=== PATIENT | male | born 1965 | race Caucasian/White ===

== ENCOUNTER 2016-04-22 12:08 | Inpatient (IN) | payer OTHER ==
[~2016-04-22] VITALS: Ht 172.7 cm; Wt 74.8 kg
--- NOTE | 2016-04-22 12:08 | NUR ---
Patient BIBA and taken to bed 05 via gurney per EMS.
--- NOTE | 2016-04-22 12:12 | NUR ---
50/M BIBA AFTER SEIZURE AT HOME 4-5 MINS TODAY. HX SEIZURE DISORDER, HIV, HEP C, CIRRHOSIS.PATIENT PRESENTS TO ED W/ ALOC, WEAKNESS,NON VERBAL,AT THIS TIME. NO N/V/D NOTED AT THIS TIME; ASCITES NOTED TO ABDOMEN; HYPOACTIVE BOWEL SOUNDS X4 QUADRANTS; SKIN IS PINK/WARM/DRY ; SWELLING NOTED TO SCROTUM AT THIS TIME;+2 PITTING EDEMA NOTED TO BL LOWER EXTREMITIES AT THIS TIME; LUNGS CLEAR BL; HR EVEN AND REGULAR; VSS; PATIENT POSITIONED FOR COMFORT; HOB ELEVATED; BEDRAILS UP X2; BED DOWN. ER MADE AWARE OF PT STATUS. Addendum: 04/22/16 at 1501 by [facility] SMALL DRY OPEN WOUND TO RIGHT FOOT.
[2016-04-22 12:14] VITALS: BP 111/83
[2016-04-22] MEDS ORDERED: NACL 0.9% 1,000 ML IV ONE (12:20)
--- NOTE | 2016-04-22 12:20 | NUR ---
RECTAL TEMPERATURE 98.6. M.D. NOTIFIED.
[2016-04-22] MEDS ORDERED: LASIX40 MG (12:30)
[2016-04-22] MEDS ORDERED: PROPRANOLOL HCL10 MG (12:30)
[2016-04-22] MEDS ORDERED: OMEPRAZOLE DR20 MG (12:30)
--- NOTE | 2016-04-22 12:30 | NUR ---
PT STILL UNRESPONSIVE TO VERBAL COMMANDS; VSS AT THIS TIME; FAMILY AT BEDSIDE; WILL CONTINUE TO MONITOR.
--- NOTE | 2016-04-22 12:38 | NUR ---
PT TAKEN TO CT VIA SAJAN ACCOMPANIED BY LACE SEWER
--- NOTE | 2016-04-22 13:07 | NUR ---
Dr. Saez evaluating patient at bedside.
[2016-04-22] MEDS ORDERED: METOCLOPRAMIDE 10 MG/2 ML INJ VIAL IVP ONE (13:30)
--- NOTE | 2016-04-22 13:30 | NUR ---
REGLAN GIVEN IVP PER ER MD DR DUVAL ORDER; MEDICATION WAS D/C BY ER MD DR. DUVAL AFTER MEDICATION GIVEN; ER MD DR. DUVAL NOTIFIED; VSS AT THIS TIME; NO S/S OF DISTRESS NOTED AT THIS TIME; WILL CONTINUE TO MONITOR.
--- NOTE | 2016-04-22 13:45 | NUR ---
NADR AT THIS TIME FROM REGLAN ADMINISTERED; VSS AT THIS TIME; PT APPEARS TO BE RESTING COMFORTABLY; NO S/S OF DISTRESS NOTED AT THIS TIME; WILL CONTINUE TO MONITOR.
[2016-04-22] MEDS ORDERED: ALBUTEROL SULFATE/IPRATROPIU 3 ML SOL IH PRN (13:50)
[2016-04-22] MEDS: NACL 0.9% 1,000 ML IV SCH (13:51)
--- NOTE | 2016-04-22 13:53 | NUR ---
CALLED PHARMACY FOR KEPPRA MEDICATION; PHARMACY TO BRING MEDICATION FOR PT IN ER; WILL CONTINUE TO MONITOR.
[2016-04-22] MEDS ORDERED: HYDROcodone/APAP 7.5/325 MG 1 TAB PO PRN (13:55)
[2016-04-22] MEDS ORDERED: ONDANSETRON 4 MG/2 ML VIAL IVP PRN (13:55)
[2016-04-22] MEDS ORDERED: levETIRAcetam 1,000 MG in NACL 0.9% 100 ML IV ONE (14:05)
--- NOTE | 2016-04-22 14:21 | NUR ---
CALLED TELEMETRY TO GIVE REPORT; RN STATED WILL CALL BACK.
[2016-04-22] MEDS ORDERED: DEXTROSE 50% 50 ML SYR IVP PRN (14:35)
--- NOTE | 2016-04-22 14:35 | NUR ---
PT TAKEN TO CT VIA GURVERNA ACCOMPANIED BY PUBLIC TRANSPORTATION INSPECTOR.
--- NOTE | 2016-04-22 14:36 | NUR ---
GAVE REPORT TO MATTY SIMON Addendum: 04/22/16 at 1529 by MED1 GAVE REPORT TO MATTY ENRIQUEZ
[2016-04-22] MEDS: ALBUTEROL SULFATE/IPRATROPIU 3 ML SOL IH SCH ×3 (15:00→23:18)
[2016-04-22] MEDS ORDERED: PIPERACILLIN/TAZOBACTAM 3.375 GM in DEXTROSE 5% 50 ML IV SCH (15:00)
[2016-04-22] MEDS ORDERED: NADOLOL 20 MG TAB PO SCH (15:00)
[2016-04-22] MEDS ORDERED: PANTOPRAZOLE 40 MG INJ VIAL IVP SCH (15:00)
[2016-04-22] MEDS ORDERED: FUROSEMIDE 40 MG TAB PO SCH (15:00)
[2016-04-22] MEDS ORDERED: PIPER/TAZO 3.375GM/D5W PREMIX 50 ML IV SCH ×2 (15:00→16:00)
--- NOTE | 2016-04-22 15:05 | NUR ---
Patient will be admitted to care of DR. HARVEY. Admited to TELEMETRY. Will go to room 112B. Belongings list completed. Report to MATTY ENRIQUEZ.
[2016-04-22 15:15] VITALS: BP 118/89
--- NOTE | 2016-04-22 15:15 | NUR ---
RECEIVED PATIENT FROM ER WITH CHIEF COMPLAINING OF SEIZURE, PATIENT APPEARED TO BE LETHARGIC AND DROWSY. AAOX2 PATIENT ABLE TO OPEN EYES AND ABLE TO VERBALIZE "IM IN HOSPITAL" AND WENT BACK TO SLEEP RIGHT AWAY. NO SIGN OF RESPIRATORY DISTRESS NOTED AT THIS TIME. INITIAL ASSESSMENT DONE. ABD DISTENDED AND FIRM. HYPOACTIVE BOWEL SOUND NOTED. LUNG SOUNDED DIMINISHED BILATERAL. PATIENT HAS 16G IV TO LEFT AC INTACT AND FLUSHED WELL. PATIENT HAS SCAB TO RIGHT HEEL LEFT CHERISE, WILL PUT DRESSING ON. MRSA SWAB DONE. HEAD OF BED ELEVATED. SEIZURE PRECAUTION INITIATED. PLAN OF CARE DISCUSSED WITH PATIENT AND FAMILY MEMBERS, THEY VERBALIZED UNDERSTANDING. SAFETY MEASURES GIVEN. CALL LIGHT WITHIN REACH. WILL CONTINUE TO MONITOR.
--- NOTE | 2016-04-22 16:42 | NUR ---
ARMBAND CHECKED AND CONFIRMED RIGHT PATIENT AND . DUE IVP AND IVPB MEDICATIONS GIVEN WITH TEACHING TO FAMILY MEMBERS, THEY VERBALIZED UNDERSTANDING. NO SIGN OF DISTRESS NOTED AT THIS TIME. PATIENT REMAINED DROWSY AND ASLEEP. SAFETY MEASURE REENFORCED. CALL LIGHT WITHIN REACH. WILL CONTINUE TO MONITOR.
[2016-04-22] MEDS: BLOOD GLUCOSE MONITORING 1 DEV DEV FS SCH ×2 (17:06→21:57)
--- NOTE | 2016-04-22 17:50 | NUR ---
WOUND TO RIGHT HEEL CLEANED, PADDED DRY AND REENFORCED WITH GAUZE AND WRAPPED WITH KERLIX, PATIENT TOLERATED WELL. NO SIGN OF DISTRESS NOTED.
--- NOTE | 2016-04-22 17:54 | NUR ---
ENDORSED PATIENT CURRENT PLAN OF CARE TO NURSE POOL STARR, PATIENT STILL REMAINED LETHARGIC AND DROWSY. NO SIGN OF DISTRESS NOTED.
--- NOTE | 2016-04-22 17:55 | NUR ---
RECEIVED PT FROM MATTY LAI. U/S TECH IS AT BEDSIDE AT THIS TIME WORKING ON THE PT. FAMILY MEMBERS AT BEDSIDE. WILL CONTINUE TO MONITOR.
--- NOTE | 2016-04-22 19:23 | NUR ---
MD BROOKE TO SEE PT. ORDERED XR LT SHOULDER DUE TO PTS C/O LT SHOULDER PAIN.
--- NOTE | 2016-04-22 19:28 | NUR ---
RECEIVED PT IN STABLE CONDITION FROM MATTY ESPARZA. NO SOB, NO SIGNS OF DISTRESS. PT IS AOX1, LETHARGIC, BUT ABLE TO FOLLOW COMMANDS AND ANSWER BY NODDING HEAD YES OR NO. VS STABLE. PT ON 2L O2 NC. FAMILY AT BEDSIDE. IV TO LT FA 16G PATENT, ASYMPTOMATIC, INTACT, IVF RUNNING. PT C/O 10/10 PAIN IN LT SHOULDER, WILL MEDICATE PER MD ORDER. PT WITH ROUND ASCITIC ABDOMEN. BLE PITTING EDEMA 3+ WORSE ON LT LEG. PT C/O LT ARM WEAKNESS AND RIGIDITY. PLACED PT ON SEIZURE AND FALL PRECAUTIONS. SCROTUM EDEMATOUS. PT WITH SCAB TO RT HEEL. PLAN OF CARE DISCUSSED WITH PT AND FAMILY. SAFETY MEASURES IN PLACE. CALL LIGHT WITHIN REACH. WILL CONTINUE TO MONITOR.
--- NOTE | 2016-04-22 19:28 | NUR ---
PT WAS ENDORSED TO RN. LUIZ FOR CONTINUITY OF CARE IN STABLE CONDITION. Addendum: 04/22/16 at 1933 by Candy Monaco RN PT WAS ENDORSED TO RN. PIOTR FOR CONTINUITY OF CARE IN STABLE CONDITION.
[2016-04-22 20:00] VITALS: BP 126/85
--- NOTE | 2016-04-22 20:47 | NUR ---
XR TECH AT BEDSIDE DOING XR RT SHOULDER, POSSIBLE DISLOCATION, TOLD CNAS AND FAMILY TO BE CAUTIOUS WITH PTS LT SHOULDER, FAMILY AND CNAS VERBALIZED UNDERSTANDING.
[2016-04-22] MEDS: MORPHINE SULFATE 2 MG/ML SYR IVP PRN (20:54)
[2016-04-22] MEDS ORDERED: levETIRAcetam 1,000 MG in NACL 0.9% 100 ML IV SCH (21:00)
[2016-04-22] MEDS ORDERED: levETIRAcetam 500 MG in NACL 0.9% 100 ML IV SCH (21:00)
[2016-04-22] MEDS ORDERED: levETIRAcetam 500 MG TAB ONE (21:07)
[2016-04-22] MEDS ORDERED: levETIRAcetam 100 MG/ML VIAL IV ONE (21:17)
[2016-04-22] MEDS: levETIRAcetam 1,000 MG in NACL 0.9% 100 ML IV SCH (21:54)
--- NOTE | 2016-04-22 21:57 | NUR ---
VS STABLE. PT TOLERATED DUE MEDS WELL. NO SOB, NO SIGNS OF DISTRESS. IV SITE ASYMPTOMATIC, INTACT, IVPB RUNNING. MEDICATED PT FOR PAIN PER MD ORDER. BLOOD SUGAR 116, NO COVERAGE NEEDED. PT ON 2L O2 NC. FAMILY AT BEDSIDE. PLAN OF CARE DISCUSSED WITH PT AND FAMILY. SAFETY MEASURES IN PLACE. CALL LIGHT WITHIN REACH. WILL CONTINUE TO MONITOR.
[2016-04-22] MEDS: PIPER/TAZO 3.375GM/D5W PREMIX 50 ML IV SCH (23:58)
--- NOTE | 2016-04-22 23:58 | NUR ---
PT TOLERATED DUE MED WELL. VS STABLE. PT ON 2L O2 NC. PT DENIES PAIN AT THIS TIME. IV SITE ASYMPTOMATIC, INTACT, PATENT, IVPB RUNNING. FAMILY AT BEDSIDE. PLAN OF CARE DISCUSSED WITH PT. SAFETY MEASURES IN PLACE. CALL LIGHT WITHIN REACH. WILL CONTINUE TO MONITOR.
[2016-04-23] VITALS: BP 100/74
--- NOTE | 2016-04-23 02:05 | NUR ---
PT ASLEEP IN BED. FLACC 0. PT ON 2L O2 NC. IV SITE ASYMPTOMATIC, INTACT, PATENT, IVF RUNNING. FAMILY AT BEDSIDE. SAFETY MEASURES IN PLACE. CALL LIGHT WITHIN REACH. WILL CONTINUE TO MONITOR.
[2016-04-23] MEDS: ALBUTEROL SULFATE/IPRATROPIU 3 ML SOL IH SCH ×6 (03:07→23:08)
--- NOTE | 2016-04-23 03:34 | NUR ---
PT REQUESTED FOOD, PROVIDED PT WITH SOFT FOODS. FAMILY MEMBER AT BEDSIDE FEEDING PATIENT, PT TOLERATING WELL.
[2016-04-23 04:00] VITALS: BP 121/74
--- NOTE | 2016-04-23 04:00 | NUR ---
VS STABLE. PT ON 2L O2 NC. NO SOB, NO SIGNS OF DISTRESS. IV SITE ASYMPTOMATIC, INTACT, PATENT, IVF RUNNING. PT C/O LT SHOULDER PAIN. WILL MEDICATE PER MD ORDER. PLAN OF CARE DISCUSSED WITH PT. SAFETY MEASURES IN PLACE. CALL LIGHT WITHIN REACH. WILL CONTINUE TO MONITOR.
[2016-04-23] MEDS: MORPHINE SULFATE 2 MG/ML SYR IVP PRN ×3 (04:16→13:53)
--- NOTE | 2016-04-23 04:35 | NUR ---
PT STATED RELIEF OF PAIN, HOWEVER PT STILL TWITCHING AND WITH MUSCLE SPASM IN LEG. SISTER STATED THAT MUSCLE SPASM WAS FELT BEFORE PT HAS A SEIZURE YESTERDAY. PAGED MD GREGORY TO MAKE AWARE.
--- NOTE | 2016-04-23 04:38 | NUR ---
SPOKE WITH MD GREGORY, ORDER FOR ATIVAN RECEIVED. WILL ADMINISTER.
[2016-04-23] MEDS ORDERED: LORazepam 2 MG/ML VIAL IVP PRN (04:40)
[2016-04-23] MEDS ORDERED: LORazepam 2 MG/ML VIAL ONE (04:46)
--- NOTE | 2016-04-23 04:46 | NUR ---
GAVE ATIVAN IVP PER MD ORDER. VS STABLE. NO SOB, NO SIGNS OF DISTRESS PT ON 2L O2 NC. IV SITE ASYMPTOMATIC, INTACT, PATENT, IVF RUNNING. SISTER AT BEDSIDE. WILL CONTINUE TO MONITOR.
[2016-04-23] MEDS: NACL 0.9% 1,000 ML IV SCH ×3 (05:04→15:30)
--- NOTE | 2016-04-23 05:16 | NUR ---
PT ASLEEP IN BED, SISTER SAID TWITCHING AND MUSCLE SPASMS STOPPED. PT ON 2L O2 NC. NO SOB, NO SIGNS OF DISTRESS. IV SITE ASYMPTOMATIC, INTACT, PATENT, IVF RUNNING. PLAN OF CARE DISCUSSED WITH PTS SISTER. SAFETY MEASURES IN PLACE. CALL LIGHT WITHIN REACH. WILL CONTINUE TO MONITOR.
[2016-04-23] MEDS: PIPER/TAZO 3.375GM/D5W PREMIX 50 ML IV SCH ×3 (05:22→17:07)
[2016-04-23] MEDS: PANTOPRAZOLE 40 MG TABEC PO SCH (06:05)
[2016-04-23] MEDS: BLOOD GLUCOSE MONITORING 1 DEV DEV FS SCH ×4 (06:05→21:51)
--- NOTE | 2016-04-23 07:43 | NUR ---
ENDORSED PT IN STABLE CONDITION TO TENA Thorpe RN. ALL NEEDS HAVE BEEN MET AT THIS TIME.
--- NOTE | 2016-04-23 07:44 | NUR ---
RECEIVED REPORT FROM MATTY SALDAÑA. PT IS AAOX1, LETHARGIC. PT ON 2L NC, O2 SAT AT 95%. IV TO LEFT FA #16, PATENT AND INTACT. NO N/V OR PAIN INDICATED. RIGHT HEEL SCAB, AND BILATERAL LOWER EXTREMITY EDEMA NOTED. ALL SAFETY PRECAUTIONS IN PLACE, SIDE RAILSX2, BED IN LOW POSITION, AND WILL PERFORM FREQUENT ROUNDS. SEIZURE PRECAUTIONS IN PLACE.
[2016-04-23 08:00] VITALS: BP 121/84
[2016-04-23] MEDS: levETIRAcetam 1,000 MG in NACL 0.9% 100 ML IV SCH ×3 (08:41→21:50)
[2016-04-23] MEDS: FUROSEMIDE 40 MG TAB PO SCH (08:47)
[2016-04-23] MEDS: NADOLOL 20 MG TAB PO SCH (08:47)
[2016-04-23] MEDS: ASPIRIN 325 MG TABEC PO SCH (08:47)
--- NOTE | 2016-04-23 08:50 | NUR ---
DR WILL IN TO SEE PT. WILL FOLLOW UP ON ORDERS.
--- NOTE | 2016-04-23 08:55 | NUR ---
PT TOLERATED MEDS WELL. 117/81, HR 78. PT C/O PAIN ADMINISTERED MORPHINE ORDERED. WILL CONTINUE TO MONITOR.
--- NOTE | 2016-04-23 09:22 | NUR ---
PATIENT HAS BEEN SCREENED AND CATEGORIZED HIGH NUTRITION RISK. PATIENT WILL BE SEEN WITHIN 1-2 DAYS OF ADMISSION. 04/23/16-04/24/[address]
[2016-04-23] MEDS: ATORVASTATIN 20 MG TAB PO SCH (09:29)
--- NOTE | 2016-04-23 10:12 | NUR ---
DR PEREA IN TO SEE PT. WILL FOLLOW UP ON ORDERS.
[2016-04-23] MEDS ORDERED: TOPIRAMATE 100 MG TAB PO SCH (10:19)
--- NOTE | 2016-04-23 11:05 | NUR ---
PT TOLERATED MEDS WELL. FAMILY PRESENT AT BEDSIDE. WILL CONTINUE TO MONITOR.
--- NOTE | 2016-04-23 11:30 | NUR ---
BLOOD GLUCOSE 140, NO COVERAGE INDICATED.
[2016-04-23 12:00] VITALS: BP 124/78
--- NOTE | 2016-04-23 12:00 | NUR ---
TALKED TO DR ADEN MD MADE AWARE OF PT HAS NOT URINATED SINCE LAST NIGHT. MD TO FOLLOW UP, NO ORDERS RECEIVED. MD AWARE UNABLE TO COLLECT URINE SAMPLE FOR UA TEST. MD TO PLACE ORDER FOR STRAIGHT CATH.
--- NOTE | 2016-04-23 13:03 | NUR ---
PT TOLERATED MEDS WELL. WILL CONTINUE TO MONITOR.
--- NOTE | 2016-04-23 13:50 | NUR ---
DR KERR IN TO SEE PT. WILL FOLLOW UP ON ORDERS.
--- NOTE | 2016-04-23 15:05 | NUR ---
DR BROOKE IN TO SEE PT. WILL FOLLOW UP ON ORDERS. Addendum: 04/23/16 at 1828 by Radha Tejada RN DR ADEN EPSTEIN MD TO PLACE ORDER FOR HANDY CATHETER.
[2016-04-23 16:00] VITALS: BP 107/83
[2016-04-23] MEDS ORDERED: LORazepam 1 MG TAB PO SCH (16:00)
--- NOTE | 2016-04-23 16:15 | NUR ---
PT TOLERATED MEDS WELL. BLOOD GLUCOSE 117, NO COVERAGE INDICATED. FAMILY PRESENT AT BEDSIDE. WILL CONTINUE TO MONITOR.
--- NOTE | 2016-04-23 16:50 | NUR ---
PT FEELING COLD, PROVIDED PT WITH WARM BLANKET. WILL CONTINUE TO MONITOR.
--- NOTE | 2016-04-23 17:09 | NUR ---
PT TOLERATED MEDS WELL. WILL CONTINUE TO MONITOR.
--- NOTE | 2016-04-23 18:40 | NUR ---
PT RESTING WITH NO DISTRESS NOTED, FAMILY PRESENT AT BEDSIDE.
--- NOTE | 2016-04-23 19:01 | NUR ---
UA DRUG SCREEN REMAINS UNCOLLECTED, TO PLACE STRAIGHT CATH ORDER. WILL FOLLOW UP.
--- NOTE | 2016-04-23 19:21 | NUR ---
ENDORSED CARE TO MATTY KO. PT IN STABLE CONDITION.
--- NOTE | 2016-04-23 19:30 | NUR ---
RECEIVED REPORT FROM TENA STARR, AT BEDSIDE, PATIENT IS A/O X2, PATIENT ANSWERS HIS NAME AND KNOWS DATE, PATIENT HAS DELAYED RESPONSE BUT CAN COMMUNICATE. PATIENT APPEARS VERY LETHARGIC. ON O2 2L NC, BED REST, SEIZURE PRECAUTIONS IN PLACE. PATIENT'S ABDOMEN IS DISTENDED AND HARD, PATIENT HAS BLE EDEMA PITTING 3+ TO LEFT LEG, 2+ TO THE RIGHT LEG. SCAB NOTED TO RIGHT HEEL, COVERED WITH DRESSING DRY AND INTACT. IV TO LEFT FOREARM 16G PATENT WITH IVF INFUSING WELL. DISCUSSED PLAN OF CARE WITH PATIENT, REINFORCEMENT NEEDED, SAFETY MEASURES CHECKED, CALL LIGHT WITHIN REACH. WILL CONTINUE TO MONITOR. FAMILY AT BEDSIDE.
[2016-04-23] MEDS ORDERED: KETOROLAC 15 MG/ML VIAL IVP PRN (19:45)
[2016-04-23 20:00] VITALS: BP 106/73
[2016-04-23] MEDS: LACTULOSE 20 GM/30 ML UDC PO SCH ×2 (21:00→21:50)
[2016-04-23] MEDS: metroNIDAZOLE 500 MG/NS PREMIX 100 ML IV SCH (21:50)
[2016-04-23] MEDS: TOPIRAMATE 100 MG TAB PO SCH (21:50)
--- NOTE | 2016-04-23 22:00 | NUR ---
PM MEDS ADMINISTERED, CRUSHED AND GIVEN WITH APPLESAUCE. PATIENT REFUSED LACTULOSE. CALL LIGHT WITHIN REACH. WILL CONTINUE TO MONITOR. WILL INSERT HANDY CATH.
--- NOTE | 2016-04-23 22:30 | NUR ---
INSERTED HANDY CATH 16 TELUGU. PATIENT TOLERATED WELL. NO HEMATURIA NOTED, DARK BEHZAD URINE PRESENT. URINE SPECIMEN COLLECTED
[2016-04-24] VITALS: BP 112/70
--- NOTE | 2016-04-24 00:15 | NUR ---
VITAL SIGNS STABLE, NO DISTRESS NOTED, ADMINISTERED ABX ZOSYN PER MD ORDER, PTS SISTER AT BEDSIDE, CALL LIGHT WITHIN REACH, WILL CONTINUE TO MONITOR.
[2016-04-24] MEDS: PIPER/TAZO 3.375GM/D5W PREMIX 50 ML IV SCH ×4 (00:30→17:49)
--- NOTE | 2016-04-24 01:58 | NUR ---
ALERTED THAT PATIENT WAS OFF TELE, CHANGED STICKER LEADS, NO SIGN OF DISTRESS, CALL LIGHT WITHIN REACH. PTS SISTER AT BEDSIDE, WILL CONTINUE TO MONITOR.
--- NOTE | 2016-04-24 03:30 | NUR ---
PATIENT SLEEPING, NO SOB OR SIGN OF DISTRESS, CALL LIGHT WITHIN REACH, WILL CONTINUE TO MONITOR.
[2016-04-24] MEDS: ALBUTEROL SULFATE/IPRATROPIU 3 ML SOL IH SCH ×6 (03:38→22:49)
[2016-04-24 04:00] VITALS: BP 134/76
--- NOTE | 2016-04-24 04:20 | NUR ---
VITAL SIGNS STABLE, NO SIGN OF DISTRESS, PATIENT STATED HE HAS NO PAIN, PATIENT ATE SOME JELLO, TOLERATED WELL, WILL CONTINUE TO MONITOR.
[2016-04-24] MEDS: levETIRAcetam 1,000 MG in NACL 0.9% 100 ML IV SCH ×3 (04:41→21:32)
--- NOTE | 2016-04-24 05:30 | NUR ---
BLOOD SUGAR CHECK 127, NO COVERAGE NEEDED
[2016-04-24] MEDS: metroNIDAZOLE 500 MG/NS PREMIX 100 ML IV SCH ×3 (05:35→21:00)
[2016-04-24] MEDS: PANTOPRAZOLE 40 MG TABEC PO SCH (06:30)
--- NOTE | 2016-04-24 06:35 | NUR ---
PATIENT SLEEPING, NO SOB OR SIGN OF DISTRESS, PATIENT DENIES ANY PAIN AT THIS TIME, WILL CONTINUE TO MONITOR.
[2016-04-24] MEDS: BLOOD GLUCOSE MONITORING 1 DEV DEV FS SCH ×4 (06:36→21:40)
--- NOTE | 2016-04-24 07:15 | NUR ---
RECEIVED PATIENT REPORT. PATIENT IS LETHARGIC BUT AROUSABLE. NO S/S OF DISTRESS NOTED. NO SOB. PATIENT ON 3L O2. DISTENDED AND ASCITIC ABD NOTED. HANDY CATHETER IN PLACE DRAINING DARK BEHZAD URINE. TESTICULAR SWELLING NOTED. BLE 2+ PITTING EDEMA NOTED. SCD IN PLACE. PATIENT ON TELE MONITORING. BED LOWERED WITH CALL LIGHT WITHIN REACH. WILL CONTINUE TO MONITOR
--- NOTE | 2016-04-24 07:15 | NUR ---
ENDORSED PATIENT TO DAY SHIFT RN AT BEDSIDE, PATIENT IN STABLE CONDITION
[2016-04-24 08:00] VITALS: BP 111/74
[2016-04-24] MEDS ORDERED: SPIRONOLACTONE 50 MG TAB PO SCH (09:00)
[2016-04-24] MEDS: FUROSEMIDE 40 MG TAB PO SCH (09:05)
[2016-04-24] MEDS: ATORVASTATIN 20 MG TAB PO SCH (09:05)
[2016-04-24] MEDS: NADOLOL 20 MG TAB PO SCH (09:05)
[2016-04-24] MEDS: TOPIRAMATE 100 MG TAB PO SCH ×2 (09:05→21:31)
[2016-04-24] MEDS: ASPIRIN 325 MG TABEC PO SCH (09:05)
[2016-04-24] MEDS: LACTULOSE 20 GM/30 ML UDC PO SCH ×2 (09:06→21:31)
[2016-04-24] MEDS ORDERED: SACCHAROMYCES 250 MG CAP PO SCH (09:23)
--- NOTE | 2016-04-24 10:20 | NUR ---
PATIENT SEEN BY DR BROOKE. PATIENT'S MOM SPOKE WITH THE DR AND WAS GIVEN AN UPDATE ON THE PATIENT'S CONDITION
[2016-04-24] MEDS ORDERED: FUROSEMIDE 100 MG/10 ML VIAL IV SCH (11:16)
--- NOTE | 2016-04-24 11:30 | NUR ---
PATIENT HAD BM. STOOL MODERATE IN A AMOUNT, BROWN IN COLOR AND PASTY LIQUID IN CONSISTENCY. STOOL DOES NOT MEET C.DIF CRITERIA. PATIENT CLEANED AND REPOSITIONED.
[2016-04-24 12:00] VITALS: BP 102/75
[2016-04-24] MEDS: NACL 0.9% 1,000 ML IV SCH ×2 (12:20→15:30)
--- NOTE | 2016-04-24 12:20 | NUR ---
04/24/16 RD INITIAL ASSESSMENT COMPLETED PLEASE REFER TO NUTRITION ASSESSMENT UNDER CARE ACTIVITY FOR ESTIMATED NUTRITIONAL NEEDS. RD RECOMMENDATIONS: 1. CONTINUE CCHO 45 GM, SOFT DIET TOLERATED PER MD 2. ENCOURAGE INCREASED PO INTAKES 3. RD TO ADD DIET HEALTH SHAKES TID TO HELP INCREASE KCAL AND PROTEIN INTAKE 4. SHOULD PT CONTINUE TO BE LETHARGIC AND HAVE POOR PO INTAKES <25% CONSIDER NUTRITION SUPPORT 5. RD WILL F/U 2-3 DAYS; HIGH RISK. RENAE BOYD RD
[2016-04-24] MEDS ORDERED: MAG SULF 2000 MG/WATER PREMIX 50 ML IV ONE (12:30)
[2016-04-24] MEDS ORDERED: POTASSIUM CHLORIDE 20% 40 MEQ/15 ML UDC GT SCH (13:08)
--- NOTE | 2016-04-24 13:10 | NUR ---
PATIENT SEEN BY DR KERR. EXPLAINED TO THE SISTER WHY PATIENT IS ON LACTULOSE
[2016-04-24 16:00] VITALS: BP 118/75
--- NOTE | 2016-04-24 16:30 | NUR ---
PATIENT ASLEEP IN BED. NO S/S OF DISTRESS NOTED. PATIENT'S DAUGHTER PRESENT IN THE ROOM.
--- NOTE | 2016-04-24 17:30 | NUR ---
PATIENT'S DAUGHTER HELPING THE PATIENT TO EAT DINNER. PATIENT HAS POOR APPETITE.
[2016-04-24] MEDS: INSULIN ASPART SLIDING SCALE 100 UNITS/ML VIAL SUBQ PRN (18:07)
--- NOTE | 2016-04-24 19:30 | NUR ---
RECEIVED REPORT FROM DAY SHIFT RN AT BEDSIDE, PATIENT IS AAO X2 APPEARS LETHARGIC. PATIENT OPENS EYES TO NAME. RESPONSIVE. SKIN CHECK, PATIENT HAS SCAB TO RIGHT HEEL WITH DRESSING DRY AND INTACT, BILATERAL LOWER EXTREMITY EDEMA NOTED WITH 3+ PITTING. ABDOMEN IS DISTENDED ROUND AND HARD, TESTES ARE SWOLLEN. PATIENT DENIES PAIN AT THIS TIME. PATIENT IS ON O2 @ 2L VIA NASAL CANNULA. SCDS ARE ON, PATIENT IS ON SEIZURE PRECAUTIONS WITH PADDING ON BED SIDE RAILS. IV TO LEFT FOREARM 16G WITH IVF INFUSING WELL. SAFETY MEASURES CHECKED, DISCUSSED PLAN OF CARE WITH PATIENT, PATIENT VERBALIZED UNDERSTANDING. REINFORCEMENT NEEDED. CALL LIGHT WITHIN REACH WILL CONTINUE TO MONITOR. Addendum: 04/24/16 at 2156 by Jessica Dvual RN PATIENT HAS HANDY WITH DARK BEHZAD URINE.
--- NOTE | 2016-04-24 19:30 | NUR ---
ENDORSED CONTINUITY OF CARE TO THE NIGHT NURSE
[2016-04-24 20:00] VITALS: BP 99/67
[2016-04-24] MEDS: SACCHAROMYCES 250 MG CAP PO SCH (21:31)
--- NOTE | 2016-04-24 21:41 | NUR ---
PM MEDS ADMINISTERED, CRUSHED PO MEDS AND MIXED WITH APPLESAUCE, WILL ADMINISTER FLAGYL WHEN KEPPRA IS FINISHED INFUSING. FAMILY AT BEDSIDE, PATIENT FELT WARM TO PTS SISTER, CHECKED TEMPERATURE, 98.6. PATIENTS SISTER ALEX, PTS POWER OF PSYCHIATRIC ARNP STATED SHE HAS BEEN SLEEPING AT THE HOSPITAL WITH THE PATIENT FOR MULTIPLE NIGHTS AND WANTS TO GO HOME TONIGHT TO SLEEP. SHE WAS WORRIED PATIENT WILL GET AGITATED PATIENT "GETS AN ATTITUDE WITH PEOPLE". SHE ASKED IF HE DOES IS THERE ANYTHING WE CAN GIVE HIM TO HELP SLEEP. I LET PTS SISTER KNOW HE HAS MEDICATION FOR ANXIETY IF NEEDED BUT WILL TRY TO CALM PATIENT BEFORE IF NEEDED. PTS SISTER AGREED AND IS AWARE AND SAID TO CALL HER IF WE NEED HER. PATIENT RESTING IN BED WITH TELEVISION ON PER REQUEST OF FAMILY, WILL CONTINUE TO MONITOR PATIENT.
--- NOTE | 2016-04-24 22:05 | NUR ---
PATIENT HAD A CONTINUOUS PULSE OX MONITOR ON, PATIENT WAS ASKING IF IT COULD BE TAKEN OFF, RT EVALUATED AND TURNED OXYGEN DOWN FROM 3L TO 2L VIA NASAL CANNULA AND PATIENT SATS AT 98%. MONITOR REMOVED. WILL CONTINUE TO MONITOR PATIENT. PATIENT TO HAVE BREATHING TX AT 2300.
--- NOTE | 2016-04-24 22:05 | NUR ---
PT ASKED IF HE CAN REMOVE CONTINUOS O2 MONITOR. ACCESSED PT AND TURNED OXYGEN FROM 3L TO 2L NC. PT SAT IS 98% HR 71. NO DISTRESS./SOB NOTED AT THIS TIME. WILL CONTINUE TO MONITOR. MATTY MAXWELL AT BEDSIDE. SISTER AT BEDSIDE.
--- NOTE | 2016-04-24 23:28 | NUR ---
PATIENT RESTING IN BED, NO SIGN OF DISTRESS, PATIENT DENIES PAIN AT THIS TIME. PATIENT IS IN GOOD MOOD AND COOPERATIVE, CALL LIGHT WITHIN REACH. WILL CONTINUE TO MONITOR
[2016-04-25] VITALS (7 sets, daily range): BP systolic 99–124; BP diastolic 61–79
[2016-04-25] MEDS: PIPER/TAZO 3.375GM/D5W PREMIX 50 ML IV SCH ×5 (00:30→23:51)
--- NOTE | 2016-04-25 01:59 | NUR ---
PATIENT WAS SLEEPING, NASAL CANNULA WAS OFF PATIENT, NO SOB NOTED, REAPPLIED CANNULA. PATIENT STATED HE WAS OKAY AND COMFORTABLE AND DID NOT NEED ANYTHING AT THIS TIME. CALL LIGHT WITHIN REACH. WILL CONTINUE TO MONITOR.
[2016-04-25] MEDS: ALBUTEROL SULFATE/IPRATROPIU 3 ML SOL IH SCH ×6 (02:50→22:34)
--- NOTE | 2016-04-25 03:00 | NUR ---
PATIENT RECEIVED BREATHING TX, PER RT PATIENT KEPT REMOVING MASK. PATIENT DID NOT FINISH ALL OF TREATMENT. CALL LIGHT WITHIN REACH. WILL CONTINUE TO MONITOR.
[2016-04-25] MEDS: levETIRAcetam 1,000 MG in NACL 0.9% 100 ML IV SCH ×3 (04:01→21:01)
--- NOTE | 2016-04-25 04:40 | NUR ---
VITAL SIGNS STABLE, PATIENT HAD A BM, CHANGED AND CLEANED PATIENT, REPOSITIONED, PATIENT TOLERATED WELL. CALL LIGHT WITHIN REACH. WILL CONTINUE TO MONITOR.
--- NOTE | 2016-04-25 05:30 | NUR ---
PATIENT STATED HE WAS HUNGRY, PATIENT ATE CHEERIOS WITH MILK, ABLE TO FEED SELF WITH RIGHT ARM. PATIENT TOLERATED WELL. PATIENT DENIES PAIN, CALL LIGHT WITHIN REACH. WILL CONTINUE TO MONITOR.
--- NOTE | 2016-04-25 05:40 | NUR ---
BS SUGAR CHECK 129, NO COVERAGE NEEDED
[2016-04-25] MEDS: metroNIDAZOLE 500 MG/NS PREMIX 100 ML IV SCH ×3 (05:44→21:00)
[2016-04-25] MEDS: PANTOPRAZOLE 40 MG TABEC PO SCH (05:48)
[2016-04-25] MEDS: BLOOD GLUCOSE MONITORING 1 DEV DEV FS SCH ×4 (06:38→21:11)
--- NOTE | 2016-04-25 06:50 | NUR ---
PATIENT SITTING UP IN BED, NO SIGN OF DISTRESS, CALL LIGHT WITHIN REACH. WILL CONTINUE TO MONITOR.
--- NOTE | 2016-04-25 07:25 | NUR ---
ENDORSED PATIENT TO DAY SHIFT RN AT BEDSIDE, PATIENT IN STABLE CONDITION
--- NOTE | 2016-04-25 07:26 | NUR ---
PT ASLEEP BUT RESPONSIVE TO VERBAL AND TACTILE STIMULI. NO SIGNS OF ACUTE DISTRESS. FAMILY AT BEDSIDE. SKIN IS WARM AND DRY, OFFLOAD TO PRESSURE AREAS. NO EPISODE OF ANY NAUSEA OR VOMITING. NOTED ABDOMINAL DISTENTION AND SCROTAL SWELLING. KEPT ELEVATED, NOTED HANDY CATHETER INTACT AND DRAINING 50CC OF BEHZAD COLORED URINE. NO C/O ANT PAIN AT THIS TIME. ALL NEEDS ATTENDED, SAFETY PRECAUTIONS MAINTAINED. CALL LIGHT WITHIN REACH.
--- NOTE | 2016-04-25 08:15 | NUR ---
NEW ORDERS RECEIVED FROM DR. HUNTER. NOTED AND CARRIED OUT.
[2016-04-25] MEDS: ATORVASTATIN 20 MG TAB PO SCH (08:56)
[2016-04-25] MEDS: LACTULOSE 20 GM/30 ML UDC PO SCH ×2 (08:56→21:00)
[2016-04-25] MEDS: SACCHAROMYCES 250 MG CAP PO SCH ×2 (08:56→21:00)
[2016-04-25] MEDS: SPIRONOLACTONE 50 MG TAB PO SCH (08:56)
[2016-04-25] MEDS: NADOLOL 20 MG TAB PO SCH (08:57)
[2016-04-25] MEDS: FUROSEMIDE 40 MG TAB PO SCH (08:57)
[2016-04-25] MEDS: TOPIRAMATE 100 MG TAB PO SCH ×2 (08:57→21:00)
[2016-04-25] MEDS: INSULIN ASPART SLIDING SCALE 100 UNITS/ML VIAL SUBQ PRN (10:48)
--- NOTE | 2016-04-25 12:11 | NUR ---
WAS SEEN BY Kunal MOLINA. VERBALIZED NO NEED TO ADMINISTER PLATELETS AND DO PARACENTESIS. NOTED DR. HUNTER MADE AWARE.
--- NOTE | 2016-04-25 13:46 | NUR ---
CLARIFIED ORDERS WITH DR. HUNTER AND Kunal KERR. MAY STILL DO PARACENTESIS AND NO NEED TO GIVE PLATELETS. NOTED AND CARRIED OUT. CONSENT OBTAINED FROM DPOA. CONTINUE TO MONITOR.
[2016-04-25] MEDS ORDERED: FUROSEMIDE 40 MG/4 ML VIAL IVP SCH (13:57)
[2016-04-25] MEDS: NACL 0.9% 1,000 ML IV SCH (15:30)
--- NOTE | 2016-04-25 16:30 | NUR ---
PT STARTED ON US GUIDED PARACENTESIS WITH ASSIGNED RESIDENTS AND DR. HUNTER. PT TOLERATING WELL. ALERT AND ORIENTED, NO SIGNS OF ACUTE DISTRESS. V/S STABLE. CONTINUE TO MONITOR.
--- NOTE | 2016-04-25 17:10 | NUR ---
PT FINISHED PARACENTESIS AND WAS ABLE TO OBTAIN 3L OF GASTRIC FLUID. SPECIMEN OBTAINED AND SENT TO LAB. PT IS AWAKE ALERT AND RESPONSIVE, NO SIGNS O ACUTE DISTRESS. CONTINUE TO MONITOR. Addendum: 04/25/16 at 1749 by Guevara Donato RN PT FINISHED PARACENTESIS AND WAS ABLE TO OBTAIN 4L OF GASTRIC FLUID. SPECIMEN OBTAINED AND SENT TO LAB. PT IS AWAKE ALERT AND RESPONSIVE, NO SIGNS O ACUTE DISTRESS. CONTINUE TO MONITOR.
[2016-04-25] MEDS ORDERED: ALBUMIN HUMAN 25% 50 ML IV SCH (17:25)
--- NOTE | 2016-04-25 18:53 | NUR ---
PT ASLEEP BUT RESPONSIVE TO VERBAL AND TACTILE STIMULI, NO SIGNS OF ACUTE DISTRESS. ENDORSED TO ONCOMING NEWS AGENT NURSE FOR CONTINUITY OF CARE.
--- NOTE | 2016-04-25 19:40 | NUR ---
RECEIVED PT IN STABLE CONDITION FROM AM NURSE. AWAKE,ALERT ,ORIENTED X2. DROWSY BUT OPEN EYES WHEN NAME CALLED. NO ACUTE DISTRESS NOTED. WITH FAMILY AT BEDSIDE. BEDREST DUE TO GEN WEAKNESS. HAS IVF INFUSING WELL ON THE LT FA#16. CLEAR AND PATENT. HANDY CATH TO GRAVITY. PLAN OF CARE DISCUSSED AND FAMILY VERBALIZED UNDERSTANDING. CALL LIGHT PLACED WITHIN EASY REACH. WILL CONTINUE TO MONITOR.
--- NOTE | 2016-04-25 21:00 | NUR ---
PT REFUSED TO TAKE ALL NIGHT MEDS. REQUESTED FOR SOME PEANUT BUTTER AND JELLY SANDWICH. PROVIDED.
--- NOTE | 2016-04-25 21:10 | NUR ---
BLOOD SUGAR WAS CHECKED RESULT 130. ENCOURAGED TO EAT. FAMILY PRESENT AND HELPED IN ENCOURAGED PT TO EAT.
--- NOTE | 2016-04-25 23:25 | NUR ---
CONTINUATION OF ABOVE NOTES. INSTRUCTED THE DAUGHTER TO CALL IF PT IS HAVING ANY PAIN OR BECOME ANXIOUS . VERBALIZED UNDERSTANDING.
--- NOTE | 2016-04-25 23:25 | NUR ---
FAMILY MEMBER CALLED AND SAID PT MIGHT NEED SOMETHING FOR PAIN. SO WENT TO ROOM. PT IS SLEEPING. ASKED THE DAUGHTER WHO IS AT BEDSIDE IF THE PT C/O PAIN EARLIER . SHE SAID ABDOMINAL PAIN . BUT PT REFUSED TO HAVE ANYTHING FOR THAT. NOW PT IS ASLEEP. NO S/S OF ANY DISCOMFORT NOR PAIN NOTED. INSTRUCTED THE [facility]
--- NOTE | 2016-04-26 02:00 | NUR ---
SLEEPING WELL AT THIS TIME. NO S/S OF ANY DISCOMFORT NOR PAIN NOTED. FAMILY AT BEDSIDE.
--- NOTE | 2016-04-26 02:01 | NUR ---
BLOOD SUGAR WAS CHECKED RESULT 130. ENCOURAGED TO EAT. FAMILY AT BEDSIDE AND ENCOURAGED PT TO EAT. Addendum: 04/26/16 at 0203 by Gail Velazquez RN CANCEL ABOVE NOTES. CAREGIVER MISTAKE
[2016-04-26] MEDS: ALBUTEROL SULFATE/IPRATROPIU 3 ML SOL IH SCH ×4 (03:03→14:42)
[2016-04-26] MEDS: levETIRAcetam 1,000 MG in NACL 0.9% 100 ML IV SCH ×2 (04:41→13:30)
[2016-04-26] MEDS: metroNIDAZOLE 500 MG/NS PREMIX 100 ML IV SCH ×2 (04:41→12:44)
--- NOTE | 2016-04-26 05:30 | NUR ---
BLOOD WAS DRAWN . WILL FOLLOW UP RESULTS.
[2016-04-26] MEDS: PIPER/TAZO 3.375GM/D5W PREMIX 50 ML IV SCH ×2 (05:47→11:27)
[2016-04-26] MEDS: PANTOPRAZOLE 40 MG TABEC PO SCH (06:30)
--- NOTE | 2016-04-26 06:30 | NUR ---
HAD SOME LEMON SANTO DOMINGO SODA . FINISHED @250 ML.
[2016-04-26] MEDS: BLOOD GLUCOSE MONITORING 1 DEV DEV FS SCH ×2 (06:43→12:04)
[2016-04-26] MEDS: INSULIN ASPART SLIDING SCALE 100 UNITS/ML VIAL SUBQ PRN ×2 (06:44→12:40)
--- NOTE | 2016-04-26 07:30 | NUR ---
ENDORSED PT IN STABLE CONDITION TO AM NURSE.
--- NOTE | 2016-04-26 07:31 | NUR ---
RECEIVED PT FROM [facility]ATTY NIELSEN ASLEEP BUT EASILY AWAKEN, LYING ON BED WITH SISTER AT BEDSIDE. AAOX2, AROUSABLE TO NAME. WITH IV ON LEFT FOREARM 16G INFUSING FLUIDS WELL, WITH RIGHT HEEL SCAB CLEAN AND DRY, WITH SCD IN PLACE. SEIZURE/FALL/ASPIRATION PRECAUTIONS ENFORCED. DISCUSSED PLAN OF CARE, PT VERBALIZED UNDERSTANDING. CALL LIGHT WITHIN REACH, WILL CONTINUE TO MONITOR.
--- NOTE | 2016-04-26 07:50 | NUR ---
ASSISTED PT TO RESTROOM WITH ORTHOPEDIC PODIATRIST, PT HAD LOOSE STOOL. PT TOLERATED AMBULATING WELL WITH O2SAT AT 99%
[2016-04-26 08:00] VITALS: BP 106/77
[2016-04-26] MEDS: NADOLOL 20 MG TAB PO SCH (08:17)
--- NOTE | 2016-04-26 08:50 | NUR ---
PT ASSISTED TO RESTROOM, HAD LOOSE BOWEL MOVEMENT. SAMPLE SENT TO LAB FOR CDIFF TOXIN.
[2016-04-26] MEDS: SPIRONOLACTONE 50 MG TAB PO SCH (09:00)
[2016-04-26] MEDS ORDERED: FUROSEMIDE 40 MG/4 ML VIAL IVP SCH (09:00)
[2016-04-26] MEDS: LACTULOSE 20 GM/30 ML UDC PO SCH (09:08)
[2016-04-26] MEDS: TOPIRAMATE 100 MG TAB PO SCH (09:08)
[2016-04-26] MEDS: ATORVASTATIN 20 MG TAB PO SCH (09:08)
[2016-04-26] MEDS: SACCHAROMYCES 250 MG CAP PO SCH (09:08)
--- NOTE | 2016-04-26 09:10 | NUR ---
DUE MEDS GIVEN, PT TOLERATED WELL. HELD BP MED AND ALDACTONE D/T LOW BLOOD PRESSURE. ALL NEEDS MET AT THIS TIME. CALL LIGHT WITHIN REACH, WILL CONTINUE TO MONITOR.
--- NOTE | 2016-04-26 09:21 | NUR ---
SPOKE TO DR HUNTER IF PT WILL STILL HAVE PLATELET TRANSFUSION, PLATELET LEVEL IS AT 47, INFORMED DR. HUNTER BUT HE STATED NO NEED FOR THE PLATELET PT DOES NOT HAVE ACTIVE BLEEDING.
[2016-04-26] MEDS ORDERED: ALDACTONE50 M1 PO (10:45)
[2016-04-26] MEDS ORDERED: CEPHULAC10 GM/152 PO (10:45)
[2016-04-26] MEDS ORDERED: TOPAMAX100 MG PO (10:45)
[2016-04-26] MEDS ORDERED: KEPPRA XR750 MG PO (10:45)
[2016-04-26] MEDS ORDERED: POTASSIUM CHLORIDE 10 MEQ TABER PO SCH (11:00)
--- NOTE | 2016-04-26 11:29 | NUR ---
6024 MET WITH PT, PT'S MOTHER ABELINO AND SISTER SAMEERA ADKINS. DISCUSSED PT'S DISCHARGE PLAN AND PER SAMEERA PT WANTS TO GO HOME. PT HAS LIMITED MOBILITY AT THE MOMENT AND WILL REQUIRE [facility] FOR HOME USE. SAMEERA HAS MEDICAL POA FOR PT AND DID PROVIDE A COPY OF THE [employer] DIRECT[employer] WHICH WAS PLACED ON PT CHART. SAMEERA IS IN AGREEMENT TO PT HAVING HOME HEALTH SERVICES FOR NURSING AND PHYSICAL THERAPY. STATES SHE HAS NO PREFERENCE. DID AGREE TO [facility].
--- NOTE | 2016-04-26 12:09 | NUR ---
SS NOTE: PER DOTTY FROM [facility] ([phone]), THEY WILL SEND A NURSE TOMORROW TO SEE PT AT HOME. DELIVERED PT'S FWW BEDSIDE, PT WAS SLEEPING BUT PT'S MOTHER, STEPHANIE WAS PRESENT. I ALSO MADE HER AWARE OF THE ABOVE INFORMATION.
--- NOTE | 2016-04-26 13:35 | NUR ---
PT ASLEEP LYING ON BED BUT EASILY AWAKEN. WITH RELATIVE ON BEDSIDE. CALL LIGHT WITHIN REACH, WILL CONTINUE TO MONITOR.
--- NOTE | 2016-04-26 15:20 | NUR ---
DISCHARGE INSTRUCTIONS AND PRESCRIPTIONS GIVEN, ID WRISTBAND AND IV ACCESS REMOVED, CATHETER TIP INTACT. DISCHARGE WOUND PHOTOS TAKEN. PT GIVEN WHEEL WALKER BY CM. PHONE NUMBER TO [employer] GIVEN. PT LEFT IN STABLE CONDITION IN A WHEELCHAIR ACCOMPANIED BY FAMILY AND WHEELED OUT BY LEAK DETECTOR IN STABLE CONDITION
== END 2016-04-26 15:20 | disposition home health service (06) | DRG 871 ==
LOC: MED 12:08 → MTU 14:21
PROVIDERS: ADMIT Student in an Organized Health Care Education/Training Program; ATTEND Student in an Organized Health Care Education/Training Program
PROC: 0W9G3ZZ Drainage of Peritoneal Cavity, Percutaneous Approach (ICD-10-PCS; principal; 2016-04-25)
PROC: 0W9G3ZX Drainage of Peritoneal Cavity, Percutaneous Approach, Diagnostic (ICD-10-PCS; 2016-04-25)
DX: A41.9 Sepsis, unspecified organism (principal); J69.0 Pneumonitis due to inhalation of food and vomit; E43 Unspecified severe protein-calorie malnutrition; J96.01 Acute respiratory failure with hypoxia; N17.0 Acute kidney failure with tubular necrosis; K76.6 Portal hypertension; D68.9 Coagulation defect, unspecified; D61.818 Other pancytopenia; K70.31 Alcoholic cirrhosis of liver with ascites; G40.409 Other generalized epilepsy and epileptic syndromes, not intractable, without status epilepticus; E11.65 Type 2 diabetes mellitus with hyperglycemia; K21.9 Gastro-esophageal reflux disease without esophagitis; B19.20 Unspecified viral hepatitis C without hepatic coma; K72.90 Hepatic failure, unspecified without coma; E87.6 Hypokalemia; E87.8 Other disorders of electrolyte and fluid balance, not elsewhere classified; E83.51 Hypocalcemia; E03.9 Hypothyroidism, unspecified; D53.9 Nutritional anemia, unspecified; G90.9 Disorder of the autonomic nervous system, unspecified; K70.11 Alcoholic hepatitis with ascites; K80.20 Calculus of gallbladder without cholecystitis without obstruction; N43.3 Hydrocele, unspecified; N18.9 Chronic kidney disease, unspecified; I12.9 Hypertensive chronic kidney disease with stage 1 through stage 4 chronic kidney disease, or unspecified chronic kidney disease; Z68.25 Body mass index [BMI] 25.0-25.9, adult; Z79.899 Other long term (current) drug therapy; Z87.820 Personal history of traumatic brain injury

== ENCOUNTER 2016-06-13 15:45 | Inpatient (IN) | payer MEDICAID, OTHER ==
[~2016-06-13] VITALS: Ht 170.2 cm; Wt 49.9 kg
[~2016-06-13 15:45] MED LIST: ALDACTONE50 M1 PO; CEPHULAC10 GM/152 PO; KEPPRA XR750 MG PO; LASIX40 MG; OMEPRAZOLE DR20 MG; PROPRANOLOL HCL10 MG; TOPAMAX100 MG PO
[2016-06-13 16:12] VITALS: BP 101/79
--- NOTE | 2016-06-13 16:18 | NUR ---
PATIENT AMBULATED TO ER BED 3.
--- NOTE | 2016-06-13 16:40 | NUR ---
51/M TO ED WITH SISTER BEDSIDE. SENT FROM PCP WITH C/O GEN WEAKNESS, DEHYDRATION, AND ABD PAIN X5 DAYS. PT IS LETHARGIC AND HAS NOT BEEN EATING OR DRINKING. PAIN 8/10. LUNGS CLEAR BILAT. HR EVEN AND REGULAR. PT IS ALERT AND ORIENTED BUT HAS DIFFICULTY SPEAKING. VSS. NO SIGNS OF DISTRESS.
--- NOTE | 2016-06-13 17:27 | NUR ---
PT TAKEN TO CT VIA SAJAN
--- NOTE | 2016-06-13 18:25 | NUR ---
Patient appears to be resting comfortably in bed. Vital Signs within normal limits. Respirations even and unlabored.
--- NOTE | 2016-06-13 19:19 | NUR ---
Pt report given to MATTY GIRON. Transfer of care at this time.
--- NOTE | 2016-06-13 19:25 | NUR ---
RECEIVED LETHARGIC,CONFUSE. NOT IN ACUTE DISTRESS. PT.ADMITTED TO TELEMETRY FOR HEPATO-BRANDON; SYNDROME UNDER THE SERVICE OF . VS STABLE,WILL CONTINUE TO MONITOR. Addendum: 06/13/16 at 2014 by [id number] CORRECTION: UNDER THE SERVICE OF DR.GEISE REED LUIS
[2016-06-13] MEDS ORDERED: HYDROcodone/APAP 5/325 MG 1 TAB TAB PO PRN (19:45)
[2016-06-13] MEDS ORDERED: ONDANSETRON 4 MG/2 ML VIAL IVP PRN (19:45)
[2016-06-13] MEDS ORDERED: MORPHINE SULFATE 2 MG/ML SYR IVP PRN (19:45)
[2016-06-13] MEDS ORDERED: ACETAMINOPHEN 325 MG TAB PO PRN (19:45)
--- NOTE | 2016-06-13 20:00 | NUR ---
REPORT GIVEN TO MANAN STARR. PT.GOING TO ROOM 106-A.
--- NOTE | 2016-06-13 20:26 | NUR ---
TRANSFERRED TO [facility] ACLS PROTOCOL STABLE. TRANSFER UNEVENTFUL.
[2016-06-13 20:40] VITALS: BP 116/80
[2016-06-13] MEDS: TOPIRAMATE 100 MG TAB PO SCH (21:00)
[2016-06-13] MEDS: LACTULOSE 20 GM/30 ML UDC PO SCH (21:00)
--- NOTE | 2016-06-13 21:00 | NUR ---
Admitted from ED, with chief complaint of SENT BY PMD FOR EVAL DUE TO WEAKNESS, CONFUSION, NOT EATING, 51 y/o ,Male, Uncooperative, IRRITABLE. Family at bedside. Initial assessment done. Vital signs checked. Pt denies any discomfort or shortness of breath. Oriented to call light, bed, phone,television, bathroom, smoking policy, visiting hours, procedures, ID bracelet on. Belongings list checked. MRSA swab collected and sent to Lab.
--- NOTE | 2016-06-13 21:15 | NUR ---
TRIED GIVING CRUSHED MEDICINE W/ APPLE SAUCE BUT PT KEEPS SPITTING IT W/ FAMILY AT BEDSIDE TO ENCOURAGE.
[2016-06-13] MEDS: NACL 0.9% 1,000 ML IV SCH (21:39)
--- NOTE | 2016-06-13 21:51 | NUR ---
PAGED DR IVY. WILL AWAIT FOR CALL BACK.
--- NOTE | 2016-06-13 21:53 | NUR ---
SPOKE TO DR IVY REGARDING PT SPITTING MEDICINE WHEN GIVEN, HAS PROBLEM SWALLOWING, AND ACCDG TO SISTER PT HASN'T BEEN EATING REGULAR FOOD FOR WEEKS, ONLY ENSURE WHENEVER HE FEELS LIKE IT. INFORMED HER ALSO THAT PER SISTER, PT HASN'T SLEPT FOR DAYS AND NEEDS SOMETHING FOR SLEEP LIKE ATIVAN. SAID SHE'LL PUT THE ORDER IN.
--- NOTE | 2016-06-13 21:53 | NUR ---
PER DR IVY, KEEP THE PATIENT NPO FOR NOW UNTIL THE MD IN THE MORNING EVALUATES THE PATIENT.
--- NOTE | 2016-06-13 23:10 | NUR ---
PT IRRITABLE AND DOESN'T WANT TO BE BOTHERED. EXPLAINED THAT HIS VS NEEDS TO BE CHECKED AND AFTERWARDS, WILL BE LEFT ALONE. PT SAID "OK". PT REPOSITIONED FOR COMFORT.
[2016-06-14] VITALS (7 sets, daily range): BP systolic 98–128; BP diastolic 61–94
--- NOTE | 2016-06-14 02:00 | NUR ---
SEEN PT STILL AWAKE. PT SAID "I'M NOT HUNGRY." ASKED PT IF HE CAN'T SLEEP. PT SAID "I'M OK, I JUST WANT TO REST." WILL MEDICATE FOR SLEEP.
[2016-06-14] MEDS: LORazepam 2 MG/ML VIAL IVP PRN (02:02)
--- NOTE | 2016-06-14 04:30 | NUR ---
AWAKEN PT. VITAL SIGNS CHECKED. PT DENIES ANY DISCOMFORT BUT DOES OCCASIONAL HICCUPS. PT REPOSITIONED FOR COMFORT. WILL APPLY SEQUENTIAL BUT PT REFUSED AT THIS TIME. SAFETY REINFORCED.
[2016-06-14] MEDS ORDERED: DEXTROSE 50% 50 ML SYR IVP PRN (07:00)
[2016-06-14] MEDS ORDERED: FLUCONAZOLE 100 MG TAB PO SCH (07:00)
[2016-06-14] MEDS ORDERED: PROPRANOLOL 20 MG TAB PO SCH (07:06)
--- NOTE | 2016-06-14 07:45 | NUR ---
RECEIVED PT SLEEPING BUT OPEN HIS EYES WHEN TOUCHED. PT VOICED NO C/O PAIN AT THIS TIME. PT NPO EXCEPT MEDS. SHIFT ASSESSMENT DONE AND CHARTED. PLAN OF CARE, MEDS, TREATMENTS AND SAFETY DISCUSSED WITH PT WITH QUESTIONABLE UNDERSTANDING. PT LOOKED MALNOURISHED AND DEHYDRATED. WILL CONTINUE TO CHECK ON PT.
--- NOTE | 2016-06-14 07:58 | NUR ---
PATIENT HAS BEEN SCREENED AND CATEGORIZED HIGH NUTRITION RISK. PATIENT WILL BE SEEN WITHIN 1-2 DAYS OF ADMISSION. 06/14/16-06/15/[address]
--- NOTE | 2016-06-14 08:00 | NUR ---
PT WAS SEEN BY MAURICIO MARQUEZ AND DR RUFF. MD LEFT NEW ORDERS.
--- NOTE | 2016-06-14 08:40 | NUR ---
PT'S FAMILY WERE IN TO VISIT PT. PT TOOK PO MEDS CRUSHED WITH APPLE SAUCE. REQUIRED A LOT OF COAXING FOR PT TO SWALLO MED. PT TOLERATED IT WELL. NO COUGHING NOTED. WILL CONTINUE TO MONITOR PT.
[2016-06-14] MEDS: NACL 0.9% 1,000 ML IV SCH ×3 (08:46→22:36)
[2016-06-14] MEDS ORDERED: SPIRONOLACTONE 50 MG TAB PO SCH ×2 (09:00→17:00)
[2016-06-14] MEDS ORDERED: FUROSEMIDE 40 MG TAB PO SCH (09:00)
[2016-06-14] MEDS: TOPIRAMATE 100 MG TAB PO SCH ×2 (09:22→21:00)
[2016-06-14] MEDS: PANTOPRAZOLE 40 MG TABEC PO SCH (09:22)
[2016-06-14] MEDS: LACTULOSE 20 GM/30 ML UDC PO SCH ×2 (09:23→21:00)
[2016-06-14] MEDS: BLOOD GLUCOSE MONITORING 1 DEV DEV FS SCH ×2 (09:24→11:30)
--- NOTE | 2016-06-14 09:30 | NUR ---
BLOOD SUGAR [address] RUFF NOTIFIED OF RESULT AND MD STATED TO D COVERAGE AT THIS TIME PT IS NPO.
--- NOTE | 2016-06-14 10:00 | NUR ---
PT'S MOTHER BROUGHT IN PT'S OWN MEDS. DR. RUFF PUT ORDER FOR SAME.
[2016-06-14] MEDS ORDERED: HARVONI1 TAB PO (10:15)
[2016-06-14] MEDS ORDERED: PATIENTS OWN TABLET PO SCH (10:35)
[2016-06-14] MEDS ORDERED: RIFAXIMIN 550 MG TAB PO SCH ×2 (10:54→21:00)
--- NOTE | 2016-06-14 11:00 | NUR ---
PT'S IV SITE NOTED TO BE SWOLLEN SAME DISCONTINUED WITH OLD CATH TIP INTACT. PRESSURE DRESSINGS APPLIED TO SITE. DR. DAVID WAS IN TO SEE PT WITH DR. MARTÍNEZ AND ELZBIETA.
[2016-06-14] MEDS: MORPHINE SULFATE 2 MG/ML SYR IVP PRN ×2 (11:18→22:08)
--- NOTE | 2016-06-14 12:00 | NUR ---
DR. ANAYA NOTIFIED RE ACCUCHECK RESULT OF 240. STATED NOT TO GIVE COVERAGE AT THIS TIME.
[2016-06-14] MEDS ORDERED: TPN PER PHARMACY MC PRN (12:25)
--- NOTE | 2016-06-14 12:30 | NUR ---
NEW G 22 IV INSERTED TO PT'S RT FOREARM. PT TOLERATED IT WELL.
[2016-06-14] MEDS ORDERED: LEVETIRACETAM 1000 MG PO SCH (13:00)
[2016-06-14] MEDS: PROPRANOLOL 20 MG TAB PO SCH ×2 (13:36→21:00)
[2016-06-14] MEDS: LEVOFLOXACIN 250 MG/D5 PREMIX 50 ML IV SCH (13:41)
--- NOTE | 2016-06-14 14:30 | NUR ---
PARACENTESIS DONE AT PT'S BED SIDE BY DR. MARTÍNEZ WITH DR. RUFF. NOTED DARK ORANGE OUTPUT 4L TOTAL. PT TOLERATED THE PROCEDURE WELL.
--- NOTE | 2016-06-14 16:30 | NUR ---
PT TURNED AND REPOSITIONED Q2H AND PRN. PT WEAK AND NEEDED 2 ASSISTS FOR TURNING AND REPOSITIONING.
[2016-06-14] MEDS: FUROSEMIDE 20 MG/2 ML VIAL IVP SCH (17:28)
[2016-06-14] MEDS: BLOOD GLUCOSE MONITORING 1 DEV DEV MC SCH (17:30)
--- NOTE | 2016-06-14 17:30 | NUR ---
ACCTK DONE 283. DR. RUFF NOTIFIED OF SAME AND STATED TO GIVE ONLY 1/2 OF THE SLIDING SCALE DOSE. PT GIVEN HUMALOG 3 UNITS ASPER MD'S INSTRUCTION. PT SLEEPING AT THIS TIME.
[2016-06-14] MEDS: INSULIN LISPRO SLIDING SCALE 100 UNITS/ML VIAL SUBQ PRN (17:32)
--- NOTE | 2016-06-14 19:10 | NUR ---
REPORT GIVEN TO BIRD STARR. PT CONTINUE TO HAVE HIS EYES CLOSED BUT WAS RESPONDING TO FAMILY VERBALLY. NO CHANGES NOTED IN PT'S CONDITION.
--- NOTE | 2016-06-14 19:30 | NUR ---
RECEIVED FROM AM RN IN BED SLEEPING. OPENS EYES WHEN TOUCHED. FAMILY MEMBERS IN HERE VISITING. CARE PLANS FOR THE NIGHT DISCUSSED WITH FAMILY MEMBERS. FOR PICC LINE PLACEMENT TONIGHT. PT. LETHARGIC AND PER AM RN MD AWARE OF SITUATION. CALL LIGHT WITH IN REACH. NEEDS WILL BE ANTICIPATED AND WILL BE MET. TOTAL CARE. WILL BE TURNED Q 2H.
[2016-06-14] MEDS ORDERED: FAT EMULSION 20% IV SCH (20:00)
[2016-06-14] MEDS ORDERED: DEXTROSE 50% IV SCH (20:00)
[2016-06-14] MEDS ORDERED: AMINO ACIDS 8.5% IV SCH (20:00)
--- NOTE | 2016-06-14 20:49 | NUR ---
DAUGHTER ASKING FOR PAIN RELIEVER FOR PT. RT SHE KNOWS S/S OF PAIN OF FATHER. WILL MEDICATE REQUESTED. PT. AT PRESENT ON PICC LINE PLACEMENT.
[2016-06-14] MEDS: RIFAXIMIN 550 MG TAB PO SCH (21:00)
--- NOTE | 2016-06-14 21:30 | NUR ---
PICC LINE INSERTED AND DONE BY PICC LINE RN. DAUGHTER AT BEDSIDE AFTER. TPN STARTED AT 40 ML PER HOUR. PICC LINE SITE DRESSING INTACT AND NO BLEEDING NOTED. PT. WILL BE TURNED Q2H.
--- NOTE | 2016-06-14 21:40 | NUR ---
MORPHINE REQUESTED BY DAUGHTER EARLIER NOT GIVEN RT PER DAUGHTER " AFTER PICC LINE PLACEMENT HE IS SLEEPING AND RELAXED NOW." PICC LINE PLACEMENT DONE. WILL DISCARD MORPHINE TAKEN OUT .
--- NOTE | 2016-06-14 22:10 | NUR ---
DAUGHTER OF PT. REQUESTED FOR MORPHINE IVP RT " HE IS NOT RELAXED NOW, HE IS PULLING HIS KNEE UP AND GRINDING HIS TEETH." MEDICATED REQUESTED. PT. NEEDS WILL BE ANTICIPATED AND WILL BE MET. TOTAL CARE. DAUGHTER REFUSED TO HAVE HIS FATHER/ PT. BE GIVEN P.O. MEDICATIONS. "ONLY IV"
[2016-06-15] MEDS: INSULIN LISPRO SLIDING SCALE 100 UNITS/ML VIAL SUBQ PRN ×4 (00:42→18:03)
[2016-06-15] MEDS: BLOOD GLUCOSE MONITORING 1 DEV DEV MC SCH ×4 (00:42→18:02)
[2016-06-15 00:47] VITALS: BP 95/70
--- NOTE | 2016-06-15 00:56 | NUR ---
PT. TURNED Q 2H. TOTAL CARE. OPENS EYES WHEN VITAL SIGN TAKEN FOR MIDNIGHT. NO COMPLAINTS DONE. CALL LIGHT WITH IN REACH. HANDY CATHETER DRAINING WELL WITH YELLOW URINE TO URINAL BAG. TELEMETRY MONITORING. FLACC 0-
--- NOTE | 2016-06-15 00:58 | NUR ---
PICC LINE DRESSING INTACT AND NO BLEEDING NOTED.
--- NOTE | 2016-06-15 03:11 | NUR ---
PT. AWAKE AT THIS TIME. ABLE TO VERBALIZE SIMPLE NEEDS. DENIES PAIN AT THIS TIME. PICC LINE SITE INTACT AND NO BLEEDING NOTED. NO SOB. ENCOURAGED TO TELL ME IF IN PAIN. "OK"
[2016-06-15 03:25] VITALS: BP 104/67
--- NOTE | 2016-06-15 04:49 | NUR ---
PT. SLEPT BACK. TELEMETRY MONITORING. CALL LIGHT WITH IN REACH. TURNED Q 2H. TOTAL CARE. FLACC 0-
[2016-06-15] MEDS: PROPRANOLOL 20 MG TAB PO SCH ×4 (05:00→20:48)
--- NOTE | 2016-06-15 05:53 | NUR ---
PT. REFUSED TO TAKE INDERAL P.O. MEDICATION. "NO" EXPLAINED PROS AND CONS. STILL REFUSED TO OPEN MOUTH. PT. BLOOD SUGAR CHECKED 198 MG/DL. RISS COVERAGE GIVEN. PT. WITH TPN ONGOING.
--- NOTE | 2016-06-15 07:31 | NUR ---
ENDORSED TO THE NEXT RN FOR CONTINUITY OF CARE AWAKE AND VERBALIZES SIMPLE NEEDS IN YORUBA.
--- NOTE | 2016-06-15 07:42 | NUR ---
RECEIVED REPORT FROM MATTY PANG. PT RESTING IN BED, LETHARGIC, A/OX3, PICC LINE DOUBLE LUMEN RIGHT UPPER ARM, PATENT, INTACT, INFUSING WELL, IV ON THE LEFT WRIST, PATENT, INTACT, INFUSING WELL, PT HAS REDNESS ON SACRAL WOUND, HANDY CATHETER IN PLACE, NO S/S OF RESPIRATORY DISTRESS OR DISCOMFORT NOTED, DISCUSSED PLAN OF CARE WITH PT, PT VERBALIZED UNDERSTANDING, DAUGHTER IS AT PT BEDSIDE, SAFETY/FALL PRECAUTIONS IN PLACE, CALL LIGHT IS WITHIN REACH, WILL CONTINUE TO MONITOR.
[2016-06-15] MEDS ORDERED: ALBUTEROL SULFATE/IPRATROPIU 3 ML SOL IH PRN (07:50)
[2016-06-15 08:00] VITALS: BP 99/61
[2016-06-15] MEDS ORDERED: LEDIPASVIR PO SCH (09:00)
[2016-06-15] MEDS ORDERED: SOFOSBUVIR PO SCH (09:00)
[2016-06-15] MEDS: FUROSEMIDE 20 MG/2 ML VIAL IVP SCH ×2 (09:00→17:00)
[2016-06-15] MEDS: RIFAXIMIN 550 MG TAB PO SCH ×2 (09:21→20:48)
[2016-06-15] MEDS: PATIENTS OWN TABLET PO SCH (09:21)
[2016-06-15] MEDS: PANTOPRAZOLE 40 MG TABEC PO SCH (09:21)
--- NOTE | 2016-06-15 09:21 | NUR ---
RECEIVED A CALL FROM LAB INFORMING ME PT WAS POSITIVE FOR MRSA OF THE NARES, INFORMED DR. RUFF, CONTACT PRECAUTIONS IN PLACE.
[2016-06-15] MEDS: LACTULOSE 20 GM/30 ML UDC PO SCH ×2 (09:22→20:48)
[2016-06-15] MEDS: TOPIRAMATE 100 MG TAB PO SCH ×2 (09:22→20:49)
--- NOTE | 2016-06-15 09:22 | NUR ---
DUE MEDICATIONS GIVEN, PO MEDS WERE CRUSHED, PT ABLE TO SWALLOW, PT TOLERATED WELL, PT FAMILY IS AT BEDSIDE, WILL CONTINUE TO MONITOR.
[2016-06-15] MEDS ORDERED: MULTIVITAMIN-12 10 ML in DEXTROSE 50% 480 ML, AMINO ACIDS 8.5% 380 ML, FAT EMULSION 20%... IV SCH (09:36)
[2016-06-15] MEDS ORDERED: POTASSIUM CHLORIDE 40 MEQ, LIDOCAINE 1% 25 MG in NACL 0.9% 250 ML IV SCH (10:00)
[2016-06-15] MEDS ORDERED: PANTOPRAZOLE 40 MG INJ VIAL IVP SCH (10:20)
--- NOTE | 2016-06-15 11:10 | NUR ---
PT RESTING IN BED, FAMILY IS AT BEDSIDE, NO S/S OF RESPIRATORY DISTRESS OR DISCOMFORT NOTED, CALL LIGHT WITHIN REACH, WILL CONTINUE TO MONITOR.
[2016-06-15] MEDS: ALBUTEROL SULFATE/IPRATROPIU 3 ML SOL IH SCH ×2 (11:24→19:52)
--- NOTE | 2016-06-15 11:57 | NUR ---
INFORMED DR. RUFF OF THE PATIENT'S DECREASED H/H. PER DR. RUFF WILL ORDER AM LABS.
[2016-06-15 12:00] VITALS: BP 98/72
[2016-06-15] MEDS: CHLORHEXADINE GLUC 2% CLOTH TP SCH (12:57)
--- NOTE | 2016-06-15 13:30 | NUR ---
PT RESTING IN BED, FAMILY IS AT BEDSIDE, CALL LIGHT WITHIN REACH, WILL CONTINUE TO MONITOR.
[2016-06-15] MEDS: LEVOFLOXACIN 250 MG/D5 PREMIX 50 ML IV SCH (14:20)
--- NOTE | 2016-06-15 15:15 | NUR ---
PT SLEEPING AT THIS TIME. FAMILY IS AT BEDSIDE.
--- NOTE | 2016-06-15 15:47 | NUR ---
06/15/16 RD INITIAL ASSESSMENT COMPLETED PLEASE REFER TO NUTRITION ASSESSMENT UNDER CARE ACTIVITY FOR ESTIMATED NUTRITIONAL NEEDS. RD RECOMMENDATIONS: 1. CONTINUE NUTRITION SUPPORT TPN D10%, AA 4.25% AT 40 ML/HR WITH 10% LIPIDS AT 100 ML VIA CENTRAL LINE 2. WHEN MEDICALLY APPROPRIATE CONSIDER ADVANCE TPN RATE TO 50 ML/HR PER MD/PHARMACIST DISCRETION. 3. IF PT APPROPRIATE FOR PO INTAKE CONSIDER ADVANCE DIET SLOWLY AND TOLERATED TO CCHO 60 GM WITH BOOST GLUCOSE CONTROL TID WITH TEXTURE MODIFICATIONS NEEDED PER SWALLOW EVALUATION RECOMMENDATIONS. 3. RD WILL F/U 2-3 DAYS; HIGH RISK. RENAE BOYD RD
[2016-06-15 16:00] VITALS: BP 99/79
--- NOTE | 2016-06-15 16:39 | NUR ---
* ST NOTE * Pt seen at bedside with family and Nursing present. Pt consenting to evaluation with pt's family present. Bedside Dysphagia and Oral Mechanism exams completed at bedside. See evaluation for further details. Pt tolerating 1/1 alternating PO trials of regular solid saltine cracker w/out s/s of aspiration but exhibiting residue and pocketing in oral cavity during and after PO intake. Pt and caregivers/family education completed regarding safe swallow compensatory strategies pt and caregivers/family could employ to aid pt with swallow function as well as to clear oral cavity of residue/pocketed food during and after PO intake, with pt indifferent to clinician's remarks but with caregivers/family agreeable with and demonstrating follow through as trained by clinician. Pt however refusing further therapeutic feeding trials of solids despite maximal education and cueing provided by clinician and pt's family. Pt and caregivers/family education completed regarding benefits of consuming as much of meals as possible to maintain adequate nutrition & hydration PO, as well as to avoid weight loss and preserve quality of life, with pt indifferent and with pt's family agreeable with clinician's recommendations. Pt then tolerating 6/6 alternating PO trials of successive sips of thin liquid apple juice via a straw w/out s/s of aspiration, exhibiting clear voicing WFL w/out wet or gargly vocal quality after PO intake. It is thus recommended pt's PO diet consistency be modified to Mechanical soft-ground textures with thin liquids for all meals, requiring close supervision by caregivers/staff/family during PO intake to assure aspiration precauations are in place. Pt also requires total assistance with feeding. It is also recommended pt be re-evaluated by an RD secondary to poor PO intake and refusal to eat, putting pt at increased risk of further malnutrition, dehydration & weight loss. No further ST follow up recommended at this time. Pt, caregivers/family and caregiver/Nursing education completed regarding results of evaluation; benefits of abiding by aspiration precautions and recommended PO diet consistency; and prognosis for improvement; with pt indifferent to clinician's remarks but caregivers/family and caregiver/Nursing agreeable with, verbalizing understanding of clinician's recommendations, and exhibiting return demonstration of aspiration precautions as taught by clinician. Recommend: - PO diet consistency of Mechanical soft-ground textures with thin liquids for all meals - CLOSE supervision during PO intake by caregivers/family to assure aspiration precautions are in place - Pt requires total assistance with feeding - RD Referral secondary to poor PO intake and pt's refusal to eat, putting pt at high risk for malnutrition and dehydration No further ST follow up recommended at this time. G8996 CJ G8997 CI G8998 CI NOMS Level 2 Time In/Out 16:05 - 16:35
--- NOTE | 2016-06-15 17:00 | NUR ---
HELP TURN PT, SACRAL DRESSING CHANGED, MINIMAL DRAINAGE, SEROSANGUINEOUS, NO ODOR, PT TOLERATED WELL, FAMILY IS AT BEDSIDE, CALL LIGHT WITHIN REACH, WILL CONTINUE TO MONITOR.
[2016-06-15] MEDS: NACL 0.9% 1,000 ML IV SCH (17:02)
--- NOTE | 2016-06-15 19:02 | NUR ---
ENDORSED PT TO RN. BIRD FOR CONTINUITY OF CARE. PT STABLE AT THIS TIME.
--- NOTE | 2016-06-15 19:30 | NUR ---
RECEIVED FROM AM RN IN BED WITH VISITORS. AWAKE AND ALERT. ABLE TO VERBALIZE IN GABONESE SIMPLE NEEDS. CALL LIGHT WITH IN REACH AND CARE PLANS FOR THE NIGHT DISCUSSED WITH FAMILY MEMBERS AND PT. TELEMETRY MONITORING.
[2016-06-15 19:37] VITALS: BP 102/66
[2016-06-15] MEDS: MORPHINE SULFATE 2 MG/ML SYR IVP PRN (19:37)
--- NOTE | 2016-06-15 19:48 | NUR ---
MEDICATED WITH MORPHINE 0.5 MG IVP REQUESTED BY MOTHER OF PT. STATED:" HE IS IN PAIN AND I CAN TELL YOU THAT WITH HIS GRIMACING". MEDICATED REQESTED. FLUSHED 2 PORTS OF PICC LINE. DRESSING INTACT AND NO BLEEDING.
--- NOTE | 2016-06-15 19:53 | NUR ---
FAMILY AT BEDSIDE. MOTHER REFUSED THE HHNTX FOR THE PT. SHE STATES THAT PT HAD NEVER TAKEN IT BEFORE AND DOES NOT NEED IT. NO SIGN OF SOB OR RESP DISTRESS NOTED.
--- NOTE | 2016-06-15 22:42 | NUR ---
SLEEPING AT THIS TIME. KEPT COMFORTABLE . ABLE TO VERBALIZE SIMPLE NEEDS. NO SOB. CALL LIGHT WITH IN REACH. FREQUENT CHECKS DONE AT LEAST EVERY 30 MINUTES. NEEDS WILL BE ANTICIPATED AND WILL BE MET. TELEMETRY MONITORING. ON ISOLATION PRECAUTIONS RT MRSA NARES.
[2016-06-15] MEDS: MUPIROCIN 2% OINT 22 GM TUBE TP SCH (22:45)
[2016-06-16] MEDS: MORPHINE SULFATE 2 MG/ML SYR IVP PRN (00:05)
[2016-06-16] MEDS: BLOOD GLUCOSE MONITORING 1 DEV DEV MC SCH ×5 (00:06→23:14)
[2016-06-16] MEDS: INSULIN LISPRO SLIDING SCALE 100 UNITS/ML VIAL SUBQ PRN ×5 (00:06→23:15)
--- NOTE | 2016-06-16 00:16 | NUR ---
PT. AWAKE AT THIS TIME. RESTLESS. KNEES DRAWN UP. MEDICATED WITH PAIN RELIEVER PER FAMILY ARE S/S OF HIS PAIN. "HE DOESN'T SAY HE IS IN PAIN BUT WHEN HE DRAWS HIS KNEES UP ..HE IS IN PAIN" PER DAUGHTER AND MOTHER. TURNED TO SIDES Q 2H. TOTAL CARE. VERBALIZES SIMPLE NEEDS IN HEBREW.
[2016-06-16 00:18] VITALS: BP 100/80
[2016-06-16] MEDS: NACL 0.9% 1,000 ML IV SCH (01:42)
--- NOTE | 2016-06-16 01:54 | NUR ---
PT. AWAKE AT THIS TIME. KEPT CLEAN AND DRY. NO COMPLAINTS DONE. TURNED Q 2H. TOTAL CARE. PICC LINE DRESSING INTACT AND DRY. NO BLEEDING NOTED. FLUSHED BOTH PORTS. PATENT AND NO INFILTRATION NOTED. AFEBRILE.
[2016-06-16 04:00] VITALS: BP 108/80
--- NOTE | 2016-06-16 04:55 | NUR ---
TURNED TO SIDES Q 2H. TOTAL CARE. PILLOW SUPPORT TO PRESSURE AREAS. PT. TELEMETRY MONITORING. PT. WAKES UP WHEN TOUCHED. SLEPT BACK AT THIS TIME POST TURNING. TPN INFUSING WELL. IVF SITE TO RIGHT FOREARM AND PICC LINE TO UPPER RIGHT ARM INTACT AND NOT INFILTRATED. NEEDS ANTICIPATED AND MET.
[2016-06-16] MEDS: PROPRANOLOL 20 MG TAB PO SCH ×3 (06:03→21:00)
--- NOTE | 2016-06-16 06:40 | NUR ---
PT. AWAKE AT THIS TIME. TURNED TO SIDES BY CNAS. NEEDS ANTICIPATED AND MET. TOTAL CARE. AM PERSONAL HYGIENE RENDERED. PILLOW SUPPORT TO PRESSURE AREAS. TELEMETRY MONITORING.
[2016-06-16] MEDS: ALBUTEROL SULFATE/IPRATROPIU 3 ML SOL IH SCH ×3 (06:58→19:33)
--- NOTE | 2016-06-16 07:04 | NUR ---
RECEIVED REPORT AT PT BEDSIDE. PT RESTING IN BED. ALERT TO SELF. NO S/S OF ACUTE DISTRESS. PICC LINE PATENT AND INTACT. LINENS CLEAN AND DRY. CALL LIGHT WITHIN REACH. SAFETY MEASURES ENSURED. DRESSING ON LEFT ABDOMEN DRY AND INTACT. SKIN TEAR ON CHEST OPEN TO AIR. WILL CONTINUE TO MONITOR.
[2016-06-16 08:00] VITALS: BP 96/67
[2016-06-16] MEDS: RIFAXIMIN 550 MG TAB PO SCH ×4 (09:00→21:01)
[2016-06-16] MEDS: LACTULOSE 20 GM/30 ML UDC PO SCH ×3 (09:00→20:59)
[2016-06-16] MEDS: TOPIRAMATE 100 MG TAB PO SCH ×4 (09:00→21:00)
[2016-06-16] MEDS: PATIENTS OWN TABLET PO SCH ×3 (09:00→10:00)
[2016-06-16] MEDS: FUROSEMIDE 20 MG/2 ML VIAL IVP SCH ×2 (09:50→17:25)
--- NOTE | 2016-06-16 09:50 | NUR ---
PATIENT REFUSED TO TAKE PO MEDICATIONS. ATTEMPTED MULTIPLE TIMES WITH TEACHING. STILL REFUSED. SPOKE WITH PATIENT'S DAUGHTER. PATIENT WILL BE CONVINCED BY MOTHER FOR MEDICATIONS. PATIENT MEDICATIONS HELD AT THIS TIME.
[2016-06-16] MEDS: PANTOPRAZOLE 40 MG INJ VIAL IVP SCH (09:51)
[2016-06-16] MEDS: MUPIROCIN 2% OINT 22 GM TUBE TP SCH ×3 (09:53→22:16)
--- NOTE | 2016-06-16 10:41 | NUR ---
PATIENT'S MOTHER AT BEDSIDE. ATTEMPTED TO MEDICATE PO MEDICATIONS, PATIENT HAS MEDICATIONS IN MOUTH, REFUSES TO SWALLOW. WILL CONTINUE TO MONITOR.
[2016-06-16] MEDS ORDERED: INSULIN DETEMIR 100 UNITS/ML 10 ML VIAL SUBQ SCH (11:00)
--- NOTE | 2016-06-16 11:00 | NUR ---
PATIENT SWALLOWING MEDICATIONS SLOWLY, MONITORING FOR ASPIRATION. PATIENT TOLERATING PO AT THIS TIME.
[2016-06-16] MEDS: CHLORHEXADINE GLUC 2% CLOTH TP SCH (11:14)
[2016-06-16 12:00] VITALS: BP 103/68
--- NOTE | 2016-06-16 12:28 | NUR ---
06/16/16 RD INITIAL ASSESSMENT COMPLETED PLEASE REFER TO NUTRITION ASSESSMENT UNDER CARE ACTIVITY FOR ESTIMATED NEEDS. RD RECOMMENDATIONS: 1. CONTINUE CURRENT DIET TOLERATED. 2. CONTINUE TPN D10%, AA 4.25% AT 40 ML/HR WITH 10% LIPIDS AT 100 ML VIA CENTRAL LINE TOLERATED. 3. WHEN MEDICALLY ABLE CONSIDER ADVANCING TPN TO D15%, AA 5.1% GOAL RATE OF 65ML/HR + 400ML 10% IL TO PROVIDE DAILY: 1560ML, 1514KCALS (30KCAL/KG), 80GM PROTEIN (1.6gm/KG), GIR 3.2mg/KG/MIN, ADEQUATE TO MEET >75% ESTIMATED KCAL AND PROTEIN NEEDS. 4. IF/WHEN MEDICALLY ABLE INITIATE TF VIA NG-TUBE WITH DIABETISOURCE AC AT 20ml ADVANCING BY 25ML EVERY 4HOURS TO GOAL RATE 70ML/HR TO PROVIDE DAILY: 1680ML, 2016KCALS, 101gm PROTEIN. 5. PLEASE CONTINUE TPN UNTIL PT TOLERATES TF AT 45ML OR MEETING >60% ESTIMATED NEEDS WITH PO DIET 6. RD WILL F/U 2-3 DAYS; HIGH RISK. SINA ANDINO RD
--- NOTE | 2016-06-16 13:00 | NUR ---
PATIENT FED BY FAMILY AT BEDSIDE. TOLERATED WELL. PATIENT RESTING IN BED. NO S/S OF ACUTE DISTRESS.
[2016-06-16] MEDS: LEVOFLOXACIN 250 MG/D5 PREMIX 50 ML IV SCH (13:04)
--- NOTE | 2016-06-16 13:16 | NUR ---
PT SLEEPING NO HHN GIVEN NO SIGNS OF DISTRESS NOTED AT THIS TIME
--- NOTE | 2016-06-16 15:20 | NUR ---
PT SLEEPING, NO S/S OF ACUTE DISTRESS NOTED. WILL CONTINUE TO MONITOR. LINENS CLEAN AND DRY.
[2016-06-16 16:00] VITALS: BP 101/69
--- NOTE | 2016-06-16 17:00 | NUR ---
PT DENIES DISCOMFORT. NO S/S OF ACUTE DISTRESS NOTED.
--- NOTE | 2016-06-16 19:27 | NUR ---
ENDORSED PLAN OF CARE TO NIGHT RN. SBAR REPORT GIVEN AT BEDSIDE. NO S/S OF ACUTE DISTRESS.
--- NOTE | 2016-06-16 19:30 | NUR ---
RECEIVED PT FROM KASI RN PT ALERT ORIENTED X2 VERY LETHARGIC ,ON TELEMETRY SR PICC LINE ON RT UA FOLEYCATH DRAINING WELL YELLOW URINE PRESSURE ULCER ON SACR;UM DRESSING DRY AND INTACT RELATIVES AT BED SIDE INITIAL ASSESSMENT DONE
[2016-06-16] MEDS: MULTIVITAMIN IV SCH (19:38)
[2016-06-16] MEDS: INSULIN HUMAN REGULAR IV SCH (19:38)
[2016-06-16] MEDS: DEXTROSE 50% IV SCH (19:38)
[2016-06-16] MEDS: [UNRECOGNIZED DRUG - OTHER] IV SCH (19:38)
[2016-06-16 20:00] VITALS: BP 108/81
--- NOTE | 2016-06-16 21:00 | NUR ---
PT ON TPN ON RT PICC LINE INFUSING WELL REPOSITIONED Q2H ON TELMETRY SR
[2016-06-16] MEDS: LORazepam 2 MG/ML VIAL IVP PRN (22:10)
[2016-06-17] VITALS: BP 115/80
--- NOTE | 2016-06-17 | NUR ---
PT REPOSITIONED Q2H TPN ON RT UA INFUSING WELL IV FLUID INFUSING WELL ON RT FA HANDY CATH DRAINING WELL YELLOW URINE ON TELEMETRY SR
--- NOTE | 2016-06-17 03:00 | NUR ---
PT SLEEPING WELL NOT DISTRESS NOTED REPOSITIONED Q2HON TELMETRY SR
[2016-06-17] MEDS: NACL 0.9% 1,000 ML IV SCH (03:26)
[2016-06-17 03:56] VITALS: BP 119/79
--- NOTE | 2016-06-17 04:00 | NUR ---
SPONGE BATH GIVEN LINEN CHANGED REPOSITIONED ON TELE SR
[2016-06-17] MEDS: PROPRANOLOL 20 MG TAB PO SCH ×3 (04:40→20:55)
[2016-06-17] MEDS: BLOOD GLUCOSE MONITORING 1 DEV DEV MC SCH ×3 (05:59→17:22)
[2016-06-17] MEDS ORDERED: INSULIN LISPRO 100 UNITS/ML VIAL SUBQ SCH (06:00)
[2016-06-17] MEDS: INSULIN LISPRO SLIDING SCALE 100 UNITS/ML VIAL SUBQ PRN ×3 (06:00→17:34)
[2016-06-17] MEDS: ALBUTEROL SULFATE/IPRATROPIU 3 ML SOL IH SCH ×3 (06:00→19:36)
--- NOTE | 2016-06-17 06:23 | NUR ---
BLOOD SUGAR TEST 416 DR DE LEON STRAP BUCKLER O;RDER HUMALOG 12 UNIS SUBQ X1
--- NOTE | 2016-06-17 07:20 | NUR ---
RECEIVED REPORT FROM THE COST AND RISK ANALYSIS MANAGER NURSE AT BEDSIDE FOR CONTINUITY OF CARE. PT IS SLEEPING. NOTED THE TPN AT 40ML INFUSING THROUGH THE PICC LINE ON PT R UPPER ARM. NOTED THE R FA 22G NS INFUSING AT 50ML.HANDY CATH IN PLACE. PT IS TOTAL CARE. WILL BE BACK TO ASSESS PT.
[2016-06-17 08:00] VITALS: BP 120/94
--- NOTE | 2016-06-17 08:00 | NUR ---
V/S WITHIN NORMAL RANGE. PT IS AWAKE. NOT SPEAKING. JUST SHAKING OR NODDING HEAD TO MY SIMPLE QUESTIONS. DENIES PAIN. ABD SLIGHTLY DISTENDED. LAST PARACENTESIS WAS 06/14. UPDATED THE BOARD. WILL BE BACK WITH MORNING MEDS.
--- NOTE | 2016-06-17 08:30 | NUR ---
SPOKE TO DR. CORCORAN ABOUT CRITICAL LAB: GLUCOSE 432 AND BUN 68. AWARE SAIL FINISHER MACHINE NURSE AT 12 U OF HUMALOG AND I ALSO HAVE LEVEMIR 10 U SCHEDULED. NO NEW ORDERS GIVEN.
[2016-06-17] MEDS: PANTOPRAZOLE 40 MG INJ VIAL IVP SCH (08:59)
[2016-06-17] MEDS: TOPIRAMATE 100 MG TAB PO SCH ×2 (09:00→20:54)
[2016-06-17] MEDS: FUROSEMIDE 20 MG/2 ML VIAL IVP SCH ×2 (09:00→16:23)
[2016-06-17] MEDS: LACTULOSE 20 GM/30 ML UDC PO SCH ×2 (09:00→20:54)
[2016-06-17] MEDS: PATIENTS OWN TABLET PO SCH (09:01)
[2016-06-17] MEDS: RIFAXIMIN 550 MG TAB PO SCH ×2 (09:01→20:54)
[2016-06-17] MEDS: INSULIN DETEMIR 100 UNITS/ML 10 ML VIAL SUBQ SCH (09:03)
--- NOTE | 2016-06-17 09:15 | NUR ---
ADMINISTERED ALL THE IVP MEDS AND LEVEMIR BUT REFUSED THE CRUSHED ORAL MEDS. CLENCHED HIS TEETH AND WOULD NOT OPEN HIS MOUTH, EVEN AFTER EXPLAINING TO PT HOW IMPORTANT HIS MEDS ARE TO HIS RECOVERY. PT SAID 'NO'. I WILL LEAVE IT AT BEDSIDE AND WILL TRY AGAIN AFTER THE SYSTEMS INTEGRATOR IS DONE CHANGING AND CLEANING PT. WILL CONTINUE TO MONITOR.
--- NOTE | 2016-06-17 10:30 | NUR ---
PT'S SISTER ARRIVED. SPOKE TO SISTER ABOUT PT NOT TAKING ORAL MORNING MEDS. SISTER FED HIM BREAKFAST AND MEDS. PT TOLERATED WELL. FAMILY WILL BE HERE DURING MED TIMES SO FAMILY CAN FEED HIM. WITH US, HE DIDN'T EVEN TOUCH HIS BREAKFAST. W/SISTER HE ATE SOME FRUIT AND YOGURT. SISTER WILL BE HERE TO SIT WITH HIM UNTIL HIS MOM GETS HERE. WILL CONTINUE TO MONITOR PT.
[2016-06-17] MEDS: MORPHINE SULFATE 2 MG/ML SYR IVP PRN (11:13)
[2016-06-17 12:00] VITALS: BP 111/81
--- NOTE | 2016-06-17 12:15 | NUR ---
MOM IS SITTING WITH PT AT BEDSIDE. HE IS RESTING COMFORTABLY. NO SIGNS OF DISTRESS OR PAIN. WILL CONTINUE TO MONITOR PT. SHE WILL TRY AND FEED HIM LATER WHEN HE WAKES UP.
[2016-06-17] MEDS: CHLORHEXADINE GLUC 2% CLOTH TP SCH (12:28)
[2016-06-17] MEDS: LEVOFLOXACIN 250 MG/D5 PREMIX 50 ML IV SCH (13:17)
--- NOTE | 2016-06-17 14:20 | NUR ---
CHANGED THE DRESSING ON HIS SACRAL AREA. PT TOLERATED WELL. REPOSITIONED PT. MOM AT BEDSIDE. WILL TRY AND FEED HIM SOMETHING. ENCOURAGED THE BOOST. WILL CONTINUE TO MONITOR PT.
--- NOTE | 2016-06-17 15:52 | NUR ---
MOTHER LEFT, NOW PT'S DAUGHTER IS AT BEDSIDE. PT IS SLEEPING. NO SIGNS OF DISTRESS. FLUIDS STILL RUNNING. TPN STILL RUNNING. WILL CONTINUE TO MONITOR PT.
[2016-06-17 16:00] VITALS: BP 99/75
--- NOTE | 2016-06-17 16:28 | NUR ---
PT RESTING COMFORTABLY. NO SIGNS OF DISTRESS. MOTHER AND DAUGHTER BOTH AT BEDSIDE. WILL CONTINUE TO MONITOR PT.
--- NOTE | 2016-06-17 18:41 | NUR ---
PT SLEEPING. PER MOTHER, PT REFUSED DINNER. NO SIGNS OF DISTRESS. WILL CONTINUE TO MONITOR PT.
--- NOTE | 2016-06-17 19:25 | NUR ---
ENDORSED PT TO THE [employer] TECHNICAL ARCHITECT NURSE AT BEDSIDE FOR CONTINUITY OF CARE. PT IS A BIT AGITATED. WILL GIVE ATIVAN AND HANG THE TPN. FAMILY AT BEDSIDE.
--- NOTE | 2016-06-17 19:26 | NUR ---
RECEIVED PT IN STABLE CONDITION FROM MATTY BENDER. NO SOB, NO SIGNS OF DISTRESS. PT IS AOX2, LETHARGIC. PT IS BEDBOUND WITH SEVERE WEAKNESS. PT ON 2L O2 NC. FAMILY AT BEDSIDE. BP LOW, OTHER VS WNL. PT WITH RT UPPER ARM PICC LINE AND RT FA IV 22G BOTH PATENT, ASYMPTOMATIC, INTACT, IVF AND TPN RUNNING. PT WITH SKIN TEAR TO LT ARM, AND MEDICAL CHEST, CHERISE. HEALED STASIS ULCER TO RT PLANTAR, SACRAL PRESSURE ULCER WITH DRESSING DRY AND INTACT. PT ON CONTACT PRECAUTIONS FOR MRSA NARES. SWOLLEN TESTICLES. HANDY IN PLACE DRAINING TO GRAVITY. FLACC 0. PLAN OF CARE DISCUSSED WITH PT AND FAMILY. SAFETY MEASURES IN PLACE. CALL LIGHT WITHIN REACH. WILL CONTINUE TO MONITOR.
[2016-06-17] MEDS: LORazepam 2 MG/ML VIAL IVP PRN (19:33)
--- NOTE | 2016-06-17 19:35 | NUR ---
HUNG THE TPN AND ADMINISTERED ATIVAN. PT TOLERATED WELL. R.T. IS HERE TO GIVE BREATHING TX. WILL CONTINUE TO MONITOR PT.
--- NOTE | 2016-06-17 19:50 | NUR ---
FAMILY IN ROOM DAUGHTER REQUESTED SUPPLEMENTAL OXYGEN OFF FATHER TRACK SURFACING MACHINE OPERATOR CHECK PAST DOCUMENTATION ROOM AIR NOTED TRACK SURFACING MACHINE OPERATOR TO CHECK OXYGEN SATURATION SHAUN A LATER TIME TRACK SURFACING MACHINE OPERATOR TO NOTIFY NILSON STARR
[2016-06-17 20:00] VITALS: BP 99/74
[2016-06-17] MEDS: [UNRECOGNIZED DRUG - OTHER] IV SCH (20:54)
[2016-06-17] MEDS: MULTIVITAMIN IV SCH (20:54)
[2016-06-17] MEDS: INSULIN HUMAN REGULAR IV SCH (20:54)
[2016-06-17] MEDS: DEXTROSE 50% IV SCH (20:54)
[2016-06-17] MEDS: MUPIROCIN 2% OINT 22 GM TUBE TP SCH (20:55)
--- NOTE | 2016-06-17 20:55 | NUR ---
PT TOLERATED DUE MEDS FAIRLY, CRUSHED IN APPLESAUCE. FAMILY AT BEDSIDE. NO SOB, NO SIGNS OF DISTRESS. PT DENIES PAIN AT THIS TIME. PLAN OF CARE DISCUSSED WITH PT. SAFETY MEASURES IN PLACE. CALL LIGHT WITHIN REACH. WILL CONTINUE TO MONITOR.
[2016-06-18] VITALS: BP 105/72
--- NOTE | 2016-06-18 00:05 | NUR ---
VS STABLE. NO SOB, NO SIGNS OF DISTRESS. CLEANED AND TURNED PT, TOLERATED WELL. PT WITH BM. PT DENIES PAIN AT THIS TIME. PLAN OF CARE DISCUSSED WITH PT. SAFETY MEASURES IN PLACE. CALL LIGHT WITHIN REACH. WILL CONTINUE TO MONITOR.
[2016-06-18] MEDS: BLOOD GLUCOSE MONITORING 1 DEV DEV MC SCH ×4 (00:40→17:13)
[2016-06-18] MEDS: INSULIN LISPRO SLIDING SCALE 100 UNITS/ML VIAL SUBQ PRN ×4 (00:56→17:13)
[2016-06-18] MEDS: NACL 0.9% 1,000 ML IV SCH (01:30)
--- NOTE | 2016-06-18 02:18 | NUR ---
PT AWAKE, WATCHING TV. NO SOB, NO SIGNS OF DISTRESS. PT DENIES PAIN AT THIS TIME. IV SITES ASYMPTOMATIC, INTACT, PATENT, IVF AND TPN RUNNING. PLAN OF CARE DISCUSSED WITH PT. SAFETY MEASURES IN PLACE. CALL LIGHT WITHIN REACH. WILL CONTINUE TO MONITOR.
[2016-06-18 04:00] VITALS: BP 101/75
--- NOTE | 2016-06-18 04:20 | NUR ---
VS STABLE. NO SOB, NO SIGNS OF DISTRESS. PT DENIES PAIN AT THIS TIME. PLAN OF CARE DISCUSSED WITH PT. SAFETY MEASURES IN PLACE. CALL LIGHT WITHIN REACH. WILL CONTINUE TO MONITOR.
[2016-06-18] MEDS: PROPRANOLOL 20 MG TAB PO SCH ×2 (05:00→13:00)
--- NOTE | 2016-06-18 06:28 | NUR ---
CALL FROM [facility] IN LAB, CRITICAL PLATELET COUNT- 15. CALLED [facility] [phone] NUMBER AND LEFT A VOICEMAIL TO CALL BACK FOR CRITICAL LAB REPORT.
--- NOTE | 2016-06-18 06:28 | NUR ---
CALL FROM MANUEL IN LAB, CRITICAL BUN 70, WILL MAKE AWARE. Addendum: 06/18/16 at 0738 by Becky Layton RN WRONG TIME, CORRECT TIME IS 0638
[2016-06-18] MEDS: ALBUTEROL SULFATE/IPRATROPIU 3 ML SOL IH SCH ×2 (06:59→13:07)
--- NOTE | 2016-06-18 07:06 | NUR ---
ENDORSED PT IN STABLE CONDITION TO [facility]. ALL NEEDS HAVE BEEN MET AT THIS TIME.
--- NOTE | 2016-06-18 07:07 | NUR ---
ALERT AND ORIENTED X2, NO SIGNS OF ACUTE DISTRESS, BREATHING EVENLY AND UNLABORED ON ROOM AIR, SKIN WARM, DRY WITH SACRAL PRESSURE ULCER, RIGHT PLANTAR HEEL ULCER, SKIN TEAR ON LEFT ARM, AND SKIN TEAR ON CHEST COVERED WITH TEGODERM, ABDOMEN ROUND AND HARD WITH BOWEL SOUNDS PRESENT IN ALL 4 QUADRANTS, BLADDER INCONTINENCE WITH HANDY IN PLACE, URINE DARK BEHZAD, LAST BM IN EARLY AM, NO COMPLAINT OF PAIN, BEDFAST, IV PATENT RIGHT FOREARM WITH NO REDNESS, RIGHT PICC LINE IN UPPER ARM WITH TPN, BED ALARM ON WITH BED IN LOW POSITION WITH BILATERAL HALF SIDE RAILS UP, CALL LIGHT WITHIN REACH.
--- NOTE | 2016-06-18 07:08 | NUR ---
MD MARTÍNEZ VERBALLY MADE AWARE OF CRITICAL BUN AND PLT COUNT.
[2016-06-18 08:00] VITALS: BP 119/81
[2016-06-18] MEDS: FUROSEMIDE 20 MG/2 ML VIAL IVP SCH ×2 (09:26→16:10)
[2016-06-18] MEDS: PANTOPRAZOLE 40 MG INJ VIAL IVP SCH (09:26)
[2016-06-18] MEDS: LACTULOSE 20 GM/30 ML UDC PO SCH (09:26)
[2016-06-18] MEDS: RIFAXIMIN 550 MG TAB PO SCH (09:27)
[2016-06-18] MEDS: PATIENTS OWN TABLET PO SCH (09:27)
[2016-06-18] MEDS: TOPIRAMATE 100 MG TAB PO SCH (09:27)
[2016-06-18] MEDS: MUPIROCIN 2% OINT 22 GM TUBE TP SCH (09:28)
[2016-06-18] MEDS: INSULIN DETEMIR 100 UNITS/ML 10 ML VIAL SUBQ SCH (09:30)
[2016-06-18] MEDS ORDERED: MULTIVITAMIN IV SCH (09:59)
[2016-06-18] MEDS ORDERED: DEXTROSE 50% IV SCH (09:59)
[2016-06-18] MEDS ORDERED: INSULIN HUMAN REGULAR IV SCH (09:59)
[2016-06-18] MEDS ORDERED: [UNRECOGNIZED DRUG - OTHER] IV SCH (09:59)
--- NOTE | 2016-06-18 10:38 | NUR ---
WOUND CARE EVALUATION NOTES: REASON FOR EVALUATION: SACRAL DECUBITUS COMPLETE SKIN ASSESSMENT DONE ON THIS 51 Y/O MALE PATIENT FROM HOME TO [facility], WITH INITIAL DIAGNOSIS OF HEPATAL RENAL SYNDROME. PAST MEDICAL HISTORY INCLUDE LIVER CIRRHOSIS, HEPATITIS C, HYPERTENSION, DM II, SEIZURE DISORDER AND CVA. ALL ABOVE INFORMATION WAS OBTAINED FROM THE ADMISSION H&P. LABS ARE WBC 8.1, H/H 12.5/37.4, GLCUOSE 191, ALBUMIN 1.8 AND PT INR 18.4/1.9. CURRENT MEDS INCLUDE LEVOFLOXACIN, INSULIN, MORPHINE, INSULIN AND ATIVAN. PATIENT IS SLEEPING AT THIS TIME, BUT EASILY AROUSABLE BY NAME. SKIN WARM TO TOUCH WNL, TOENAILS ARE THICKENED, NO EDEMA, NO HAIR GROWTH AND +1 BILATERAL PEDAL PULSES. MULTIPLE CALLUSES NOTED ON THE RIGHT PLANTAR FOOT, PER PATIENT'S MOTHER HE IS SEEING A FOOT DOCTOR, THE LAST TIME WAS 2 MONTHS AGO. NEEDS MAX ASSISTANCE IN TURNING. NOTED TO HAVE LOOSE YELLOWISH STOOLS IN MODERATE AMOUNT. INITIAL PLAN OF CARE AND PRESSURE PREVENTIVE MEASURES DISCUSSED WITH PATIENT AND PATIENT'S MOTHER, ABLE TO VERBALIZE UNDERSTANDING. INTEGUMENTARY: SACRUM - ST II - 100% PALE RED RIGHT PLANTAR FOOT - HYPERKERATOSIS RECOMMENDATIONS: -CLEANSE SACRUM WITH NS AND GAUZE, PAT DRY, APPLY Z GUARD AND COVER WITH COMPOSITE DRESSING Q DAY AND PRN WITH SOILING/DISPLACEMENT. -PAINT RIGHT PLANTAR FOOT WITH BETADINE BIDWC AND LEAVE OPEN TO AIR --TURN AND REPOSITION PATIENT Q2H TO LEFT AND RIGHT SIDE ONLY TO OFFLOAD SACRALCOCCYX -ASSESS AND MONITOR SKIN CONDITION DURING POSITION CHANGE, PLEASE PAY PARTICULAR ATTENTION TO SACRALCOCCYX, ELBOWS AND HEELS -OFFLOAD BILATERAL HEELS BY PLACING PILLOWS UNDER CALVES AT ALL TIMES, UNLESS OTHERWISE CONTRAINDICATED -PRESSURE REDISTRIBUTION SURFACE THERAPY -KEEP SKIN CLEAN AND DRY AT ALL TIME -PODIATRY CONSULT IF OK WITH PMD. RECOMMENDATIONS DISCUSSED WITH PRIMARY RN AND RESIDENT PHYSICIAN, DR RUFF. WILL FOLLOW UP PATIENT Q 7 DAYS AND PRN. PLEASE CONTACT [facility] FOR ANY CONCERNS, QUESTIONS AND CHANGES IN SKIN CONDITION.
[2016-06-18] MEDS: CHLORHEXADINE GLUC 2% CLOTH TP SCH (11:55)
[2016-06-18 12:00] VITALS: BP 116/85
[2016-06-18] MEDS ORDERED: LEVOFLOXACIN 250 MG/D5 PREMIX 50 ML IV SCH (14:00)
--- NOTE | 2016-06-18 14:48 | NUR ---
RECEIVED A CALL FROM TRACEY OQUENDO FROM [facility]. PATIENT WILL GO TO ROOM 208A AT [facility] UNDER DR. GONZALES. PHONE FOR REPORT [phone]. PATIENT WILL BE GOING TO A TELEMETRY BED.
--- NOTE | 2016-06-18 15:03 | NUR ---
CM NOTE: CALLED [facility] AND SPOKE TO HAZEL TO SET UP ALS TRANSPORTATION (TEL # ) . TOP CASE ASSEMBLER TIME AT 5PM. PATIENT WILL BE TRANSFERRED TO [facility] ROOM 208A. PCS FORM FAXED TO [facility] ( FAX # [phone]).
[2016-06-18 16:00] VITALS: BP 97/74
[2016-06-18] MEDS ORDERED: LEVEMIR100 U/ML SUBQ (16:08)
[2016-06-18] MEDS ORDERED: ATIVAN2 MG/M1 IVP (16:08)
[2016-06-18] MEDS ORDERED: PROPRANOLOL HCL10 MG PO (16:08)
[2016-06-18] MEDS ORDERED: Patients Own Medication PO (16:08)
[2016-06-18] MEDS ORDERED: BACTROBAN 2%20 MG/GM TP (16:08)
[2016-06-18] MEDS ORDERED: APLICARE ANTIS118 M2 TP (16:08)
[2016-06-18] MEDS ORDERED: HUMALOG SL100 UNITS/ SUBQ (16:08)
[2016-06-18] MEDS ORDERED: LASIX10 MG/M2 IVP (16:08)
[2016-06-18] MEDS ORDERED: IPRATROPIUM BROM3 M1 IH ×2 (16:08)
[2016-06-18] MEDS ORDERED: Miscellaneous MC (16:08)
[2016-06-18] MEDS ORDERED: XIFAXAN550 MG PO (16:21)
[2016-06-18] MEDS ORDERED: LEVAQUIN750 MG IV (17:09)
--- NOTE | 2016-06-18 18:30 | NUR ---
PT AWAKE AND RESPONSIVE, NO SIGNS OF ACUTE DISTRESS. JULY D/C TO [facility] WITH TPN AND IV ANTIBIOTICS ORDERED. REPORT GIVEN TO PAN CHARGE NURSE FOR CONTINUITY OF CARE. PT AND FAMILY EDUCATED ON CONTINUING PLAN OF CARE. FAMILY VERBALIZED UNDERSTANDING. RIGHT UPPER ARM PICC AND LEFT ARM PERIPHERAL IV KEPT ON HEPLOCK. WRIST BANDS AND TELE LEADS REMOVED. PICKED UP BY [facility] AND TRANSFERRED BY [facility]. BELONGINGS WITH FAMILY UPON LEAVING UNIT.
== END 2016-06-18 18:30 | DRG 432 ==
LOC: MED 15:45 → MTU 19:45
PROVIDERS: ADMIT Family Medicine; ATTEND Family Medicine
PROC: 02HV33Z Insertion of Infusion Device into Superior Vena Cava, Percutaneous Approach (ICD-10-PCS; 2016-06-13)
PROC: B548ZZA Ultrasonography of Superior Vena Cava, Guidance (ICD-10-PCS; 2016-06-13)
PROC: 0W9G3ZZ Drainage of Peritoneal Cavity, Percutaneous Approach (ICD-10-PCS; principal; 2016-06-14)
DX: K70.31 Alcoholic cirrhosis of liver with ascites (principal); G93.41 Metabolic encephalopathy; E43 Unspecified severe protein-calorie malnutrition; N17.0 Acute kidney failure with tubular necrosis; D68.69 Other thrombophilia; Z68.1 Body mass index [BMI] 19.9 or less, adult; R64 Cachexia; E80.6 Other disorders of bilirubin metabolism; N43.3 Hydrocele, unspecified; D69.6 Thrombocytopenia, unspecified; E11.65 Type 2 diabetes mellitus with hyperglycemia; L89.152 Pressure ulcer of sacral region, stage 2; I10 Essential (primary) hypertension; E86.0 Dehydration; B19.20 Unspecified viral hepatitis C without hepatic coma; G40.909 Epilepsy, unspecified, not intractable, without status epilepticus; K21.9 Gastro-esophageal reflux disease without esophagitis; Z79.899 Other long term (current) drug therapy; Z86.73 Personal history of transient ischemic attack (TIA), and cerebral infarction without residual deficits